=== PATIENT | female | born 1955 | race Caucasian/White ===

== ENCOUNTER 2022-06-17 11:40 | Inpatient (IN) | payer OTHER ==
--- OUTSIDE RECORDS SUMMARY | 2022-06-17 11:56 | XMS REPORT | Continuity of Care Document ---
:1955 Author Organization [facility] t Address [address] [place] [address] Care Team Providers Name Role Phone Fred uMrray MD Primary Care Physician [phone] Doctor Unassigned, [place] Attending Clinician Unavailable ABILIO MARCOS Attending Clinician Unavailable Abilio Marcos MD Attending Clinician Lab, Richi Wong Attending Clinician Unavailable Fred Murray MD Attending Clinician FRED MURRAY Attending Clinician Unavailable NurseRichi Attending Clinician Unavailable SUE JIMENES Attending Clinician Unavailable Sue Jimenes PA-C Attending Clinician Rodney Ching Attending Clinician Unavailable GORDON PADILLA Attending Clinician Unavailable Brianna Rodriguez MD Attending Clinician BRIANNA RODRIGUEZ Attending Clinician Unavailable 2, [facility] Attending Clinician Unavailable Thiago Grimes DO Attending Clinician Lab, Adc Fam Pob I Attending Clinician Unavailable Nurse, Morenita Morales Attending Clinician Unavailable ABILIO MARCOS Admitting Clinician Unavailable GORDON PADILLA Admitting Clinician Unavailable Payers Payer Name Policy Type Policy Number Effective Date Expiration Date S ource Problems Condition Condition Condition Status Onset Resolution Last Treating Co mments Source Name Details Category Date Date Treatment Clinician Date Dilated Dilated Disease Active [facility] bile duct bile duct 6-15 st 00:00: Hospita 00 l Right Right Disease Active [facility] upper upper 6-15 st quadrant quadrant 00:00: Hospit a abdominal abdominal 00 l pain pain Collagenou Collagenou Disease Active U nivers s colitis s colitis 02-12 ity of 00:00: [place] 00 Medical Branch Hyperchole Hyperchole Disease Active U nivers sterolemia sterolemia 02-16 it y of 00:00: [place] 00 Medical Branch Essential Essential Disease Active Uni vers hypertensi hypertensi 02-16 it y of on on 00:00: [place] 00 Medical Branch Restless Restless Disease Active Unive rs leg leg 02-16 ity of syndrome syndrome 00:00: [place] 00 Medical Branch Allergies, Adverse Reactions, Alerts Allergy Allergy Status Severity Reaction(s) Onset Inactive Treating Comm ents Source Name Type Date Date Clinician Codeine Propensi Active Unknown - Univ ers ty to See comments 02-16 ity of adverse 00:00: [place] reaction 00 Medical s Branch CODEINE DRUG Active Unknown-Cmnt Uni vers INGREDI 02-16 ity of 00:00: [place] 00 Medical Branch Codeine Propensi Active GI Methodi ty to Intolerance 07 st adverse 00:00: Hospita reaction 00 l s to drug Family History Family Member Diagnosis Comments Start Date Stop Date Source Natural father Cirrhosis [facility] Social History Social Habit Start Date Stop Date Quantity Comments Source Gender identity [facility] [place] [facility] Sexual orientation [facility] History of tobacco Smokes tobacco [facility] use daily Hospital Exposure to 2022-03-31 2022-04-10 Not sure University of SARS-CoV-2 (event) 00:00:00 08:39:00 [facility] Alcohol intake 2020-08-21 2020-08-21 Ex-drinker [facility] 00:00:00 00:00:00 (finding) Hospital History of Social 2020-08-21 2020-08-[address] function 00:00:00 00:00:00 Hospital Cigarettes smoked 2020-08-17 2020-08-[address] current (pack per 00:00:00 00:00:00 Hospita l day) - Reported Cigarette 2020-08-172020-08-17 [facility] pack-years 00:00:00 00:00:00 Hospital Tobacco use and 2015-09-12 2015-09-12 Smokeless Universit y of exposure 00:00:00 00:00:00 tobacco non-user [facility] Sex Ass[birth year] [facility] 00:00:00 00:00:00 Hospital Smoking Status Start Date Stop Date Source Smokes tobacco daily 2015-09-12 00:00:00 Univers ity [facility] Medications Ordered Filled Start Stop Current Ordering Indication Dosage Frequency Signature Comments Components Source Medication Medication Date Date Medication? Clinician (SIG) Name Name carvediloL 2022-0 Yes [id number] 25mg Take 1 U nivers 25 mg 3-01 tablet by ity of tablet 00:00: mouth in [place] 00 the Medical morning Branch and 1 tablet in the evening. Take with meals. clopidogreL 2022-0 Yes [id number] 75mg Take 1 Univers 75 mg 3-01 tablet by ity of tablet 00:00: mouth in [place] [address] the Medical morning. Branch hydroCHLORO 2022-0 Yes [id number] 25mg Take 1 Univers thiazide 25 3-01 tablet by ity of mg tablet 00:00: mouth in [place] [facility] 00 the Medical morning. Branch olmesartan 2022-0 Yes [id number] 40mg Take 1 U nivers 40 mg 3-01 tablet by ity of tablet 00:00: mouth in [place] 00 the Medical morning. Branch rOPINIRole 2022-0 Yes [id number] 1mg Take 1 U nivers 1 mg tablet 3-01 tablet by ity of 00:00: mouth 2 [place] [address] (two) Medical times Branch daily as needed (restless legs). simvastatin 2022-0 Yes [id number] 40mg Take 1 Univers 40 mg 3-01 tablet by ity of tablet 00:00: mouth at [place] [address] bedtime. Medical Branch carvediloL 2022-0 Yes [id number] 25mg Take 1 U nivers 25 mg 3-01 tablet by ity of tablet 00:00: mouth in [place] [address] the Medical morning Branch and 1 tablet in the evening. Take with meals. clopidogreL 2022-0 Yes [id number] 75mg Take 1 Univers 75 mg 3-01 tablet by ity of tablet 00:00: mouth in [place] 00 the Medical morning. Branch hydroCHLORO 3-0 Yes [id number] 25mg Take 1 Univers thiazide 25 3-01 tablet by ity of mg tablet 00:00: mouth in [place] [facility] 00 the Medical morning. Branch olmesartan 2022-0 Yes [id number] 40mg Take 1 U nivers 40 mg 3-01 tablet by ity of tablet 00:00: mouth in [place] 00 the Medical morning. Branch rOPINIRole 3-0 Yes [id number] 1mg Take 1 U nivers 1 mg tablet 3-01 tablet by ity of 00:00: mouth 2 [place] 00 (two) Medical times [place] daily as needed (restless legs). simvastatin 2022-0 Yes [id number] 40mg Take 1 Univers 40 mg 3-01 tablet by ity of tablet 00:00: mouth at [place] [address] bedtime. Medical Branch carvediloL 2022-0 Yes [id number] 25mg Take 1 U nivers 25 mg 3-01 tablet by ity of tablet 00:00: mouth in [place] 00 the Medical morning Branch and 1 tablet in the evening. Take with meals. clopidogreL 2022-0 Yes [id number] 75mg Take 1 Univers 75 mg 3-01 tablet by ity of tablet 00:00: mouth in [place] 00 the Medical morning. Branch hydroCHLORO 2022-0 Yes [id number] 25mg Take 1 Univers thiazide 25 3-01 tablet by ity of mg tablet 00:00: mouth in [place] [facility] 00 the Medical morning. Branch olmesartan 2022-0 Yes [id number] 40mg Take 1 U nivers 40 mg 3-01 tablet by ity of tablet 00:00: mouth in [place] 00 the Medical morning. Branch rOPINIRole 3-0 Yes [id number] 1mg Take 1 U nivers 1 mg tablet 3-01 tablet by ity of 00:00: mouth 2 [place] [address] (two) [facility] times [place] daily as needed (restless legs). simvastatin 3-0 Yes [id number] 40mg Take 1 Univers 40 mg 3-01 tablet by ity of tablet 00:00: mouth at [place] [address] bedtime. Medical Branch carvediloL 3-0 Yes [id number] 25mg Take 1 U nivers 25 mg 3-01 tablet by ity of tablet 00:00: mouth in [place] [address] the Medical morning Branch and 1 tablet in the evening. Take with meals. clopidogreL 3-0 Yes [id number] 75mg Take 1 Univers 75 mg 3-01 tablet by ity of tablet 00:00: mouth in [place] 00 the Medical morning. Branch hydroCHLORO 3-0 Yes [id number] 25mg Take 1 Univers thiazide 25 3-01 tablet by ity of mg tablet 00:00: mouth in [place] [facility] 00 the Medical morning. Branch olmesartan 2023-0 Yes [id number] 40mg Take 1 U nivers 40 mg 3-01 tablet by ity of tablet 00:00: mouth in [place] 00 the Medical morning. Branch rOPINIRole 2023-0 Yes [id number] 1mg Take 1 U nivers 1 mg tablet 3-01 tablet by ity of 00:00: mouth 2 [place] 00 (two) Medical times [place] daily as needed (restless legs). simvastatin 3-0 Yes [id number] 40mg Take 1 Univers 40 mg 3-01 tablet by ity of tablet 00:00: mouth at [place] [address] bedtime. Medical Branch carvediloL 3-0 Yes [id number] 25mg Take 1 U nivers 25 mg 3-01 tablet by ity of tablet 00:00: mouth in [place] 00 the Medical morning Branch and 1 tablet in the evening. Take with meals. clopidogreL 3-0 Yes [id number] 75mg Take 1 Univers 75 mg 3-01 tablet by ity of tablet 00:00: mouth in [place] 00 the Medical morning. Branch hydroCHLORO 3-0 Yes [id number] 25mg Take 1 Univers thiazide 25 3-01 tablet by ity of mg tablet 00:00: mouth in [place] [facility] 00 the Medical morning. Branch olmesartan 2023-0 Yes [id number] 40mg Take 1 U nivers 40 mg 3-01 tablet by ity of tablet 00:00: mouth in [place] 00 the Medical morning. Branch rOPINIRole 2023-0 Yes [id number] 1mg Take 1 U nivers 1 mg tablet 3-01 tablet by ity of 00:00: mouth 2 [place] [address] (two) Medical times [place] daily as needed (restless legs). simvastatin 2023-0 Yes [id number] 40mg Take 1 Univers 40 mg 3-01 tablet by ity of tablet 00:00: mouth at [place] [address] bedtime. Medical Branch carvediloL 2023-0 Yes [id number] 25mg Take 1 U nivers 25 mg 3-01 tablet by ity of tablet 00:00: mouth in [place] 00 the Medical morning Branch and 1 tablet in the evening. Take with meals. clopidogreL 2022-0 Yes [id number] 75mg Take 1 Univers 75 mg 3-01 tablet by ity of tablet 00:00: mouth in [place] 00 the Medical morning. Branch hydroCHLORO 2022-0 Yes [id number] 25mg Take 1 Univers thiazide 25 3-01 tablet by ity of mg tablet 00:00: mouth in [place] [facility] the Medical morning. Branch olmesartan 2022-0 Yes [id number] 40mg Take 1 U nivers 40 mg 3-01 tablet by ity of tablet 00:00: mouth in [place] the Medical morning. Branch rOPINIRole 2022-0 Yes [id number] 1mg Take 1 U nivers 1 mg tablet 3-01 tablet by ity of 00:00: mouth [place] (two) Medical times Branch daily as needed (restless legs). simvastatin 2022-0 Yes [id number] 40mg Take 1 Univers 40 mg 3-01 tablet by ity of tablet 00:00: mouth at [place] 00 bedtime. Medical Branch rOPINIRole 2022-0 Yes [id number] 1mg TAKE 1 U nivers 1 mg tablet 2-28 TABLET BY ity of 00:00: MOUTH [place] (TWO) Medical TIMES [place] DAILY NEEDED (RESTLESS LEGS). clopidogreL 2022-0 Yes [id number] TAKE 1 Univers 75 mg 2-28 TABLET BY ity of tablet 00:00: MOUTH [place] 00 EVERY DAY Medical Branch simvastatin 2022-0 Yes [id number] TAKE 1 Univers 40 mg 2-28 TABLET BY ity of tablet 00:00: MOUTH [place] 00 EVERYDAY Medical AT BEDTIME Branch olmesartan 2022-0 Yes [id number] TAKE 1 U nivers 40 mg 2-28 TABLET BY ity of tablet 00:00: MOUTH [place] 00 EVERY DAY Medical Branch carvediloL 3-0 Yes [id number] TAKE 1 U nivers 25 mg 2-28 TABLET BY ity of tablet 00:00: MOUTH [place] 00 TWICE A Medical DAY WITH Branch MEALS rOPINIRole 3-0 3- No [id number] 1mg TAKE 1 Univers 1 mg tablet 2-28 03- TABLET BY it y of 00:00: 00:00 MOUTH 2 [place] 00 :00 (TWO) Medical TIMES Branch DAILY NEEDED (RESTLESS LEGS). clopidogreL 0 2022- No [id number] TAKE 1 Univers 75 mg 2-28 - TABLET BY ity of tablet 00:00: 00:00 MOUTH [place] 00 :00 EVERY DAY Medical Branch simvastatin 2022-0 2022- No [id number] TAKE 1 Univers 40 mg 2-28 - TABLET BY ity of tablet 00:00: 00:00 MOUTH [place] 00 :00 EVERYDAY Medical AT BEDTIME Branch olmesartan 2022-0 2022- No [id number] TAKE 1 Univers 40 mg 2-28 - TABLET BY ity of tablet 00:00: 00:00 MOUTH [place] 00 :00 EVERY DAY Medical Branch carvediloL 2022-0 2022- No [id number] TAKE 1 Univers 25 mg 2-07 05- TABLET BY ity of tablet 00:00: 00:00 MOUTH [place] 00 :00 TWICE A Medical DAY WITH Branch MEALS rOPINIRole 2022-0 2022- No [id number] 1mg TAKE 1 Univers 1 mg tablet 04-09 TABLET BY it y of 00:00: 00:00 MOUTH 2 [place] 00 :00 (TWO) Medical TIMES Branch DAILY NEEDED (RESTLESS LEGS). clopidogreL 2022-2022- No [id number] TAKE 1 Univers 75 mg 2-07 05- TABLET BY ity of tablet 00:00: 00:00 MOUTH [place] 00 :00 EVERY DAY Medical Branch simvastatin 2022-0 2022- No [id number] TAKE 1 Univers 40 mg 2-07 05- TABLET BY ity of tablet 00:00: 00:00 MOUTH [place] 00 :00 EVERYDAY Medical AT BEDTIME Branch olmesartan 2022-0 2022- No [id number] TAKE 1 Univers 40 mg 2-28 - TABLET BY ity of tablet 00:00: 00:00 MOUTH [place] 00 :00 EVERY DAY Medical Branch carvediloL 2022-0 2022- No [id number] TAKE 1 Univers 25 mg 2-28 - TABLET BY ity of tablet 00:00: 00:00 MOUTH [place] 00 :00 TWICE A Medical DAY WITH Branch MEALS hydroCHLORO 2022-0 Yes [id number] TAKE 1 Univers thiazide 25 2-06 TABLET BY ity of mg tablet 00:00: MOUTH [place] 00 EVERY DAY Medical Branch hydroCHLORO 2022-0 Yes [id number] TAKE 1 Univers thiazide 25 2-06 TABLET BY ity of mg tablet 00:00: MOUTH [place] 00 EVERY DAY Medical Branch hydroCHLORO 2022-0 3- No [id number] TAKE 1 Univers thiazide 25 2-06 -01 TABLET BY it y of mg tablet 00:00: 00:00 MOUTH [place] 00 :00 EVERY DAY Medical Branch hydroCHLORO 3-0 3- No [id number] TAKE 1 Univers thiazide 25 2-07 13-01 TABLET BY it y of mg tablet 00:00: 00:00 MOUTH [place] 00 :00 EVERY DAY Medical Branch clopidogreL 2021-0 Yes [id number] 75mg Take 1 Univers 75 mg 1-05 tablet by ity of tablet 00:00: mouth [place] 00 daily. Medical Branch carvediloL 0 Yes [id number] 25mg Take 1 U nivers 25 mg 1-05 tablet by ity of tablet 00:00: mouth 2 00 (two) Medical times Branch daily with meals. simvastatin 0 Yes [id number] 40mg Take 1 Univers 40 mg 1-05 tablet by ity of tablet 00:00: mouth at [place] 00 bedtime. Medical Branch rOPINIRole 0 Yes [id number] 1mg Take 1 U nivers 1 mg tablet 1-05 tablet by ity of 00:00: mouth 2 (two) Medical times Branch daily as needed (restless legs). olmesartan 0 Yes [id number] 40mg Take 1 U nivers 40 mg 1-05 tablet by ity of tablet 00:00: mouth [place] 00 daily. Medical Branch hydroCHLORO 2021-0 Yes [id number] 25mg Take 1 Univers thiazide 25 1-05 tablet by ity of mg tablet 00:00: mouth [place] 00 daily. Medical Branch clopidogreL 2021-0 Yes [id number] 75mg Take 1 Univers 75 mg 1-05 tablet by ity of tablet 00:00: mouth [place] 00 daily. Medical Branch carvediloL 2021-0 Yes [id number] 25mg Take 1 U nivers 25 mg 1-05 tablet by ity of tablet 00:00: mouth 2 00 (two) Medical times Branch daily with meals. simvastatin 2021-0 Yes [id number] 40mg Take 1 Univers 40 mg 1-05 tablet by ity of tablet 00:00: mouth at [place] 00 bedtime. Medical Branch rOPINIRole 2021-0 Yes [id number] 1mg Take 1 U nivers 1 mg tablet 1-05 tablet by ity of 00:00: mouth 2 (two) Medical times Branch daily as needed (restless legs). olmesartan 2021-0 Yes [id number] 40mg Take 1 U nivers 40 mg 1-05 tablet by ity of tablet 00:00: mouth [place] 00 daily. Medical Branch hydroCHLORO 2021-0 Yes [id number] 25mg Take 1 Univers thiazide 25 1-05 tablet by ity of mg tablet 00:00: mouth [place] 00 daily. Medical Branch clopidogreL 2021-0 Yes [id number] 75mg Take 1 Univers 75 mg 1-05 tablet by ity of tablet 00:00: mouth [place] 00 daily. Medical Branch carvediloL 2021-0 Yes [id number] 25mg Take 1 U nivers 25 mg 1-05 tablet by ity of tablet 00:00: mouth 2 (two) Medical times Branch daily with meals. simvastatin 2021-0 Yes [id number] 40mg Take 1 Univers 40 mg 1-05 tablet by ity of tablet 00:00: mouth at 00 bedtime. Medical Branch rOPINIRole 2021-0 Yes [id number] 1mg Take 1 U nivers 1 mg tablet 1-05 tablet by ity of 00:00: mouth (two) Medical times Branch daily as needed (restless legs). olmesartan 2021-0 Yes [id number] 40mg Take 1 U nivers 40 mg 1-05 tablet by ity of tablet 00:00: mouth [place] 00 daily. Medical Branch hydroCHLORO 2021-0 Yes [id number] 25mg Take 1 Univers thiazide 25 1-05 tablet by ity of mg tablet 00:00: mouth [place] 00 daily. Medical Branch clopidogreL 2021-0 Yes [id number] 75mg Take 1 Univers 75 mg 1-05 tablet by ity of tablet 00:00: mouth [place] 00 daily. Medical Branch carvediloL 2021-0 Yes [id number] 25mg Take 1 U nivers 25 mg 1-05 tablet by ity of tablet 00:00: mouth 2 00 (two) Medical times Branch daily with meals. simvastatin 2021-0 Yes [id number] 40mg Take 1 Univers 40 mg 1-05 tablet by ity of tablet 00:00: mouth at [place] 00 bedtime. Medical Branch rOPINIRole 2021-0 Yes [id number] 1mg Take 1 U nivers 1 mg tablet 1-05 tablet by ity of 00:00: mouth 2 (two) Medical times Branch daily as needed (restless legs). olmesartan 2021-0 Yes [id number] 40mg Take 1 U nivers 40 mg 1-05 tablet by ity of tablet 00:00: mouth [place] 00 daily. Medical Branch hydroCHLORO 2021-0 Yes [id number] 25mg Take 1 Univers thiazide 25 1-05 tablet by ity of mg tablet 00:00: mouth [place] 00 daily. Medical Branch clopidogreL 2021-0 Yes [id number] 75mg Take 1 Univers 75 mg 1-05 tablet by ity of tablet 00:00: mouth [place] 00 daily. Medical Branch carvediloL 2021-0 Yes [id number] 25mg Take 1 U nivers 25 mg 1-05 tablet by ity of tablet 00:00: mouth 2 (two) Medical times Branch daily with meals. simvastatin 2021-0 Yes [id number] 40mg Take 1 Univers 40 mg 1-05 tablet by ity of tablet 00:00: mouth at [place] 00 bedtime. Medical Branch rOPINIRole 2021-0 Yes [id number] 1mg Take 1 U nivers 1 mg tablet 1-05 tablet by ity of 00:00: mouth (two) Medical times Branch daily as needed (restless legs). olmesartan 2021-0 Yes [id number] 40mg Take 1 U nivers 40 mg 1-05 tablet by ity of tablet 00:00: mouth [place] 00 daily. Medical Branch hydroCHLORO 2021-0 Yes [id number] 25mg Take 1 Univers thiazide 25 1-05 tablet by ity of mg tablet 00:00: mouth [place] 00 daily. Medical Branch clopidogreL 2021-0 Yes [id number] 75mg Take 1 Univers 75 mg 1-05 tablet by ity of tablet 00:00: mouth [place] 00 daily. Medical Branch carvediloL 2021-0 Yes [id number] 25mg Take 1 U nivers 25 mg 1-05 tablet by ity of tablet 00:00: mouth 2 00 (two) Medical times Branch daily with meals. simvastatin 2021-0 Yes [id number] 40mg Take 1 Univers 40 mg 1-05 tablet by ity of tablet 00:00: mouth at [place] 00 bedtime. Medical Branch rOPINIRole 2-0 Yes [id number] 1mg Take 1 U nivers 1 mg tablet 1-05 tablet by ity of 00:00: mouth 2 (two) Medical times Branch daily as needed (restless legs). olmesartan 2021-0 Yes [id number] 40mg Take 1 U nivers 40 mg 1-05 tablet by ity of tablet 00:00: mouth [place] 00 daily. Medical Branch hydroCHLORO 2021-0 Yes [id number] 25mg Take 1 Univers thiazide 25 1-05 tablet by ity of mg tablet 00:00: mouth [place] 00 daily. Medical Branch clopidogreL 2021-0 Yes [id number] 75mg Take 1 Univers 75 mg 1-05 tablet by ity of tablet 00:00: mouth [place] 00 daily. Medical Branch carvediloL 2021-0 Yes [id number] 25mg Take 1 U nivers 25 mg 1-05 tablet by ity of tablet 00:00: mouth 2 (two) Medical times Branch daily with meals. simvastatin 2021-0 Yes [id number] 40mg Take 1 Univers 40 mg 1-05 tablet by ity of tablet 00:00: mouth at [place] 00 bedtime. Medical Branch rOPINIRole 2021-0 Yes [id number] 1mg Take 1 U nivers 1 mg tablet 1-05 tablet by ity of 00:00: mouth (two) Medical times Branch daily as needed (restless legs). olmesartan 2021-0 Yes [id number] 40mg Take 1 U nivers 40 mg 1-05 tablet by ity of tablet 00:00: mouth [place] 00 daily. Medical Branch hydroCHLORO 2021-0 Yes [id number] 25mg Take 1 Univers thiazide 25 1-05 tablet by ity of mg tablet 00:00: mouth [place] 00 daily. Medical Branch clopidogreL 2-0 Yes [id number] 75mg Take 1 Univers 75 mg 1-05 tablet by ity of tablet 00:00: mouth [place] 00 daily. Medical Branch carvediloL 2021-0 Yes [id number] 25mg Take 1 U nivers 25 mg 1-05 tablet by ity of tablet 00:00: mouth 2 00 (two) Medical times Branch daily with meals. simvastatin 2-0 Yes [id number] 40mg Take 1 Univers 40 mg 1-05 tablet by ity of tablet 00:00: mouth at [place] 00 bedtime. Medical Branch rOPINIRole 2021-0 Yes [id number] 1mg Take 1 U nivers 1 mg tablet 1-05 tablet by ity of 00:00: mouth 2 (two) Medical times Branch daily as needed (restless legs). olmesartan 2021-0 Yes [id number] 40mg Take 1 U nivers 40 mg 1-05 tablet by ity of tablet 00:00: mouth [place] 00 daily. Medical Branch hydroCHLORO 2021-0 Yes [id number] 25mg Take 1 Univers thiazide 25 1-05 tablet by ity of mg tablet 00:00: mouth [place] 00 daily. Medical Branch clopidogreL 2021-0 Yes [id number] 75mg Take 1 Univers 75 mg 1-05 tablet by ity of tablet 00:00: mouth [place] 00 daily. Medical Branch carvediloL 2021-0 Yes [id number] 25mg Take 1 U nivers 25 mg 1-05 tablet by ity of tablet 00:00: mouth (two) Medical times Branch daily with meals. simvastatin 2021-0 Yes [id number] 40mg Take 1 Univers 40 mg 1-05 tablet by ity of tablet 00:00: mouth at [place] 00 bedtime. Medical Branch rOPINIRole 2021-0 Yes [id number] 1mg Take 1 U nivers 1 mg tablet 1-05 tablet by ity of 00:00: mouth (two) Medical times Branch daily as needed (restless legs). olmesartan 2021-0 Yes [id number] 40mg Take 1 U nivers 40 mg 1-05 tablet by ity of tablet 00:00: mouth [place] 00 daily. Medical Branch hydroCHLORO 2021-0 Yes [id number] 25mg Take 1 Univers thiazide 25 1-05 tablet by ity of mg tablet 00:00: mouth [place] 00 daily. Medical Branch clopidogreL 2021-0 Yes [id number] 75mg Take 1 Univers 75 mg 1-05 tablet by ity of tablet 00:00: mouth [place] 00 daily. Medical Branch carvediloL 2021-0 Yes [id number] 25mg Take 1 U nivers 25 mg 1-05 tablet by ity of tablet 00:00: mouth 2 (two) Medical times Branch daily with meals. simvastatin 2022-0 Yes [id number] 40mg Take 1 Univers 40 mg 1-05 tablet by ity of tablet 00:00: mouth at [place] 00 bedtime. Medical Branch rOPINIRole 2021-0 Yes [id number] 1mg Take 1 U nivers 1 mg tablet 1-05 tablet by ity of 00:00: mouth 2 00 (two) Medical times Branch daily as needed (restless legs). olmesartan 0 Yes [id number] 40mg Take 1 U nivers 40 mg 1-05 tablet by ity of tablet 00:00: mouth [place] 00 daily. Medical Branch hydroCHLORO 0 Yes [id number] 25mg Take 1 Univers thiazide 25 1-05 tablet by ity of mg tablet 00:00: mouth 00 daily. Medical Branch clopidogreL 0 Yes [id number] 75mg Take 1 Univers 75 mg 1-05 tablet by ity of tablet 00:00: mouth 00 daily. Medical Branch carvediloL 0 Yes [id number] 25mg Take 1 U nivers 25 mg 1-05 tablet by ity of tablet 00:00: mouth [place] (two) Medical times Branch daily with meals. simvastatin Yes [id number] 40mg Take 1 Univers 40 mg 1-05 tablet by ity of tablet 00:00: mouth at [place] 00 bedtime. Medical Branch rOPINIRole 0 Yes [id number] 1mg Take 1 U nivers 1 mg tablet 1-05 tablet by ity of 00:00: mouth [place] 00 (two) Medical times Branch daily as needed (restless legs). olmesartan 0 Yes [id number] 40mg Take 1 U nivers 40 mg 1-05 tablet by ity of tablet 00:00: mouth [place] 00 daily. Medical Branch simvastatin 2021-0 2022- No [id number] 40mg Take 1 Univers 40 mg 1-05 02-28 tablet by ity of tablet 00:00: 00:00 mouth at [place] 00 :00 bedtime. Medical Branch rOPINIRole 2021-0 2022- No [id number] 1mg Take 1 Univers 1 mg tablet 1-05 02-28 tablet by it y of 00:00: 00:00 mouth 2 00 :00 (two) Medical times Branch daily as needed (restless legs). olmesartan 2021-0 2022- No [id number] 40mg Take 1 Univers 40 mg 02-14 tablet by ity of tablet 00:00: 00:00 mouth [place] 00 :00 daily. Medical Branch clopidogreL 2021-0 2022- No [id number] 75mg Take 1 [facility] 75 mg 02-14 tablet by ity of tablet 00:00: 00:00 mouth [place] 00 :00 daily. Medical Branch carvediloL 2021-0 2022- No [id number] 25mg Take 1 Univers 25 mg 02-14 tablet by ity of tablet 00:00: 00:00 mouth 2 [place] 00 :00 (two) Medical times Branch daily with meals. hydroCHLORO 2022- No [id number] 25mg Take 1 [facility] thiazide 25 02-14 tablet by it y of mg tablet 00:00: 00:00 mouth [place] 00 :00 daily. Medical Branch omeprazole 2020-0 Yes [facility] (PriLOSEC) 7-08 st 20 MG 14:13: Hospita capsule 51 l melatonin 2020-0 Yes Take by Metho di 10 mg 7-[address] capsule 14:13: Hospita 51 l diphenoxyla 2020-0 Yes [facility] i te 1-13 st HCl/atropin 00:00: Hospit a e 00 l (DIPHENOXYL ATE-ATROPIN E ORAL) clopidogreL 2020-0 Yes 75mg Take 75 mg [facility] (PLAVIX) 75 -[address] mg tablet 00:00: Hospita 00 l carvediloL 2020-0 Yes 25mg Take 25 mg M ethodi (COREG) 25 -[address] MG tablet 00:00: Hospita 00 l hydroCHLORO 2020-0 Yes 12.5mg Take 12.5 [facility] thiazide 1-[address] (HYDRODIURI 00:00: mouth. Hosp meenakshi L) 25 MG 00 l tablet olmesartan 2020-0 Yes 40mg Take 40 mg M ethodi (BENICAR) 1-[address] 40 MG 00:00: Hospita tablet 00 l rOPINIRole 2020-0 Yes 1mg Take 1 mg Me thodi (REQUIP) 1 1-[address] MG tablet 00:00: Hospita 00 l simvastatin 2020-0 Yes 40mg Take 40 mg [facility] (ZOCOR) 40 1-[address] mg tablet 00:00: Hospita 00 l Immunizations Ordered Filled Immunization Date Status Comments [facility] Immunization Name Name Influenza Virus 2021-12-14 Completed [facility] Vaccine,quad 00:00:00 [place] [facility],preserve [place] 65+ Influenza Virus 2021-12-14 Completed Universit y [facility] Vaccine,quad 00:00:[facility] [place] [facility] [place] 65+ Influenza Virus 2021-12-14 Completed Universit y of Vaccine,quad 00:00:00 [place] [facility] [place] 65+ Influenza Virus 2021-12-14 Completed Universit y of Vaccine,quad 00:00:00 [place] [facility] [place] 65+ Influenza Virus 2021-12-14 Completed Universit y of Vaccine,quad 00:00:00 [place] [facility] [place] 65+ Influenza Virus 2021-12-14 Completed Universit y of Vaccine,quad 00:00:00 [place] [facility] [place] 65+ Influenza Virus 2021-12-14 Completed Universit y of Vaccine,quad 00:00:00 [place] [facility] [place] 65+ Influenza Virus 2021-12-14 Completed Universit y of Vaccine,quad 00:00:00 [place] [facility] [place] 65+ Influenza Virus 2021-12-14 Completed Universit y of Vaccine,quad 00:00:00 [place] [facility] [place] 65+ Influenza Virus 2021-02-14 Completed Universit y of Vaccine,quad 00:00:00 [place] [facility] [place] 65+ Influenza Virus 2021-02-14 Completed Universit y of Vaccine,quad 00:00:00 [place] [facility] [place] 65+ Influenza Virus 2021-02-14 Completed Universit y of Vaccine,quad 00:00:00 [place] [facility] [place] 65+ Influenza Virus 2021-02-14 Completed Universit y of Vaccine,quad 00:00:00 [place] [facility] [place] 65+ Influenza Virus 2021-02-14 Completed [facility]it y of Vaccine,quad 00:00:00 [place] [facility] [place] 65+ Influenza Virus 2021-02-14 Completed [facility]it y of Vaccine,quad 00:00:00 [place] [facility] [place] 65+ Influenza Virus 2021-02-14 Completed [facility]it y of Vaccine,quad 00:00:00 [place] [facility] [place] 65+ Influenza Virus 2021-02-14 Completed [facility]it y of Vaccine,quad 00:00:00 [place] [facility] [place] 65+ Influenza Virus 2021-02-14 Completed [facility]it y of Vaccine,quad 00:00:00 [place] [facility] [place] 65+ Influenza Virus 2021-02-14 Completed [facility]it [facility] of Vaccine,quad 00:00:00 [place] [facility] [place] 65+ Influenza Virus 2021-02-14 Completed [facility]it y of Vaccine,quad 00:00:00 [place] [facility] [place] 65+ Influenza Virus 2021-02-14 Completed [facility]it y of Vaccine,quad 00:00:00 [place] [facility] [place] 65+ Influenza Virus 2021-02-14 Completed [facility]it y of Vaccine,quad 00:00:00 [place] [facility] [place] 65+ Influenza Virus 2021-02-14 Completed [facility]it y of Vaccine,quad 00:00:00 [place] [facility] [place] 65+ Influenza Virus 2021-02-14 Completed [facility]it y of Vaccine,quad 00:00:00 [place] [facility] [place] 65+ Influenza Virus 2021-02-14 Completed [facility]it [facility] of Vaccine,quad 00:00:00 [place] [facility] [place] 65+ Influenza Virus 2021-02-14 Completed [facility]it y of Vaccine,quad 00:00:00 [place] [facility] [place] 65+ Influenza Virus 2021-02-14 Completed [facility]it y of Vaccine,quad 00:00:00 [place] [facility] [place] 65+ Influenza High Dose 2020-02-14 Completed Unive rsity of Quad 00:00:00 [place] [facility] Influenza High Dose 2020-02-14 Completed Unive rsity of Quad 00:00:00 [place] [facility] Influenza High Dose 2020-02-14 Completed Unive rsity of Quad 00:00:00 [place] [facility] Influenza High Dose 2020-02-14 Completed Unive rsity of Quad 00:00:00 [place] [facility] Influenza High Dose 2020-02-14 Completed Unive rsity of Quad 00:00:00 [facility] Influenza High Dose 2020-02-14 Completed Unive rsity of Quad 00:00:00 [facility] Influenza High Dose 2020-02-14 Completed Unive rsity of Quad 00:00:00 [facility] Influenza High Dose 2020-02-14 Completed Unive rsity of Quad 00:00:00 [facility] Influenza High Dose 2020-02-14 Completed Unive rsity of Quad 00:00:00 [facility] Influenza High Dose 2020-02-14 Completed Unive rsity of Quad 00:00:00 [facility] Influenza High Dose 2020-02-14 Completed Unive rsity of Quad 00:00:00 [facility] Influenza High Dose 2020-02-14 Completed Unive rsity of Quad 00:00:00 [facility] Influenza High Dose 2020-02-14 Completed Unive rsity of Quad 00:00:00 [facility] Influenza High Dose 2020-02-14 Completed Unive rsity of Quad 00:00:00 [facility] Influenza High Dose 2020-02-14 Completed Unive rsity of Quad 00:00:00 [facility] Influenza High Dose 2020-02-14 Completed Unive rsity of Quad 00:00:00 [facility] Influenza High Dose 2020-02-14 Completed Unive rsity of Quad 00:00:00 [facility] Influenza High Dose 2020-02-14 Completed Unive rsity of Quad 00:00:00 [facility] Pneumococcal 2019-08-09 Completed University o f Polysaccharide, 00:00:00 [place] [facility] PPSV23 (PNEUMOVAX) Branch Pneumococcal 2019-08-09 Completed University o f Polysaccharide, 00:00:00 [place] [facility] PPSV23 (PNEUMOVAX) Branch Pneumococcal 2019-08-09 Completed University o f Polysaccharide, 00:00:00 [place] [facility] PPSV23 (PNEUMOVAX) Branch Pneumococcal 2019-08-09 Completed University o f Polysaccharide, 00:00:00 [place] [facility] PPSV23 (PNEUMOVAX) Branch Pneumococcal 2019-08-09 Completed University o f Polysaccharide, 00:00:00 [place] [facility] PPSV23 (PNEUMOVAX) Branch Pneumococcal 2019-08-09 Completed University o f Polysaccharide, 00:00:00 [place] [facility] PPSV23 (PNEUMOVAX) Branch Pneumococcal 2019-08-09 Completed University o f Polysaccharide, 00:00:00 [place] [facility] PPSV23 (PNEUMOVAX) Branch Pneumococcal 2019-08-09 Completed University o f Polysaccharide, 00:00:00 [place] [facility] PPSV23 (PNEUMOVAX) Branch Pneumococcal 2019-08-09 Completed University o f Polysaccharide, 00:00:00 [place] [facility] PPSV23 (PNEUMOVAX) Branch Pneumococcal 2019-08-09 Completed University o f Polysaccharide, 00:00:00 [place] [facility] PPSV23 (PNEUMOVAX) Branch Pneumococcal 2019-08-09 Completed University o f Polysaccharide, 00:00:00 [place] [facility] PPSV23 (PNEUMOVAX) Branch Pneumococcal 2019-08-09 Completed University o f Polysaccharide, 00:00:00 [place] [facility] PPSV23 (PNEUMOVAX) Branch Pneumococcal 2019-08-09 Completed University o f Polysaccharide, 00:00:00 [place] [facility] PPSV23 (PNEUMOVAX) Branch Pneumococcal 2019-08-09 Completed University o f Polysaccharide, 00:00:00 [place] [facility] PPSV23 (PNEUMOVAX) Branch Pneumococcal 2019-08-09 Completed University o f Polysaccharide, 00:00:00 [place] [facility] PPSV23 (PNEUMOVAX) Branch Pneumococcal 2019-08-09 Completed University o f Polysaccharide, 00:00:00 [place] [facility] PPSV23 (PNEUMOVAX) Branch Pneumococcal 2019-08-09 Completed University o f Polysaccharide, 00:00:00 [place] [facility] PPSV23 (PNEUMOVAX) Branch Pneumococcal 2019-08-09 Completed University o f Polysaccharide, 00:00:00 [place] [facility] PPSV23 (PNEUMOVAX) Branch Influenza Virus 2018-10-11 Completed Universit y of Vaccine 00:00:00 [facility] Influenza Virus 2018-10-11 Completed Universit y of Vaccine 00:00:00 [facility] Influenza Virus 2018-10-11 Completed Universit y of Vaccine 00:00:00 [facility] Influenza Virus 2018-10-11 Completed Universit y of Vaccine 00:00:00 [facility] Influenza Virus 2018-10-11 Completed Universit y of Vaccine 00:00:00 [facility] Influenza Virus 2018-10-11 Completed Universit y of Vaccine 00:00:00 [facility] Influenza Virus 2018-10-11 Completed Universit y of Vaccine 00:00:00 [facility] Influenza Virus 2018-10-11 Completed Universit y of Vaccine 00:00:00 [facility] Influenza Virus 2018-10-11 Completed Universit y of Vaccine 00:00:00 [facility] Influenza Virus 2018-10-11 Completed Universit y of Vaccine 00:00:00 [facility] Influenza Virus 2018-10-11 Completed Universit y of Vaccine 00:00:00 [facility] Influenza Virus 2018-10-11 Completed Universit y of Vaccine 00:00:00 [facility] Influenza Virus 2018-10-11 Completed Universit y of Vaccine 00:00:00 [facility] Influenza Virus 2018-10-11 Completed Universit y of Vaccine 00:00:00 [facility] Influenza Virus 2018-10-11 Completed Universit y of Vaccine 00:00:00 [facility] Influenza Virus 2018-10-11 Completed Universit y of Vaccine 00:00:00 [facility] Influenza Virus 2018-10-11 Completed Universit y of Vaccine 00:00:00 [facility] Influenza Virus 2018-10-11 Completed Universit y of Vaccine 00:00:00 [facility] Pneumococcal 13 2018-08-04 Completed Universit y of Conjugate, PCV13 00:00:00 [facility] dical (Prevnar 13) Branch Pneumococcal 13 2018-08-04 Completed Universit y of Conjugate, PCV13 00:00:00 [facility] dical (Prevnar 13) Branch Pneumococcal 13 2018-08-04 Completed Universit y of Conjugate, PCV13 00:00:00 [facility] dical (Prevnar 13) Branch Pneumococcal 13 2018-08-04 Completed Universit y of Conjugate, PCV13 00:00:00 [facility] dical (Prevnar 13) Branch Pneumococcal 13 2018-08-04 Completed Universit y of Conjugate, PCV13 00:00:00 [place] [facility] (Prevnar 13) Branch Pneumococcal 13 2018-08-04 Completed Universit y of Conjugate, PCV13 00:00:00 [place] [facility] (Prevnar 13) Branch Pneumococcal 13 2018-08-04 Completed Universit y of Conjugate, PCV13 00:00:00 [facility] dical (Prevnar 13) Branch Pneumococcal 13 2018-08-04 Completed Universit y of Conjugate, PCV13 00:00:00 [facility] dical (Prevnar 13) Branch Pneumococcal 13 2018-08-04 Completed Universit y of Conjugate, PCV13 00:00:00 [place] [facility] (Prevnar 13) Branch Pneumococcal 13 2018-08-04 Completed Universit y of Conjugate, PCV13 00:00:00 [place] [facility] (Prevnar 13) Branch Pneumococcal 13 2018-08-04 Completed Universit y of Conjugate, PCV13 00:00:00 [place] [facility] (Prevnar 13) Branch Pneumococcal 13 2018-08-04 Completed Universit y of Conjugate, PCV13 00:00:00 [place] [facility] (Prevnar 13) Branch Pneumococcal 13 2018-08-04 Completed Universit y of Conjugate, PCV13 00:00:00 [place] [facility] (Prevnar 13) Branch Pneumococcal 13 2018-08-04 Completed Universit y of Conjugate, PCV13 00:00:00 [place] [facility] (Prevnar 13) Branch Pneumococcal 13 2018-08-04 Completed Universit y of Conjugate, PCV13 00:00:00 [place] [facility] (Prevnar 13) Branch Pneumococcal 13 2018-08-04 Completed Universit y of Conjugate, PCV13 00:00:00 [place] [facility] (Prevnar 13) Branch Pneumococcal 13 2018-08-04 Completed Universit y of Conjugate, PCV13 00:00:00 [place] [facility] (Prevnar 13) Branch Pneumococcal 13 2018-08-04 Completed Universit y of Conjugate, PCV13 00:00:00 [place] [facility] (Prevnar 13) Branch Vital Signs Vital Name Observation Time Observation Value Comments Source Systolic blood 2022-04-10 14:55:00 185 mm[Hg] Univer sity of pressure [facility] Diastolic blood 2022-04-10 14:55:00 69 mm[Hg] Unive [facility] Heart rate 2022-04-10 14:54:00 66 /min [facility] Body temperature 2022-04-10 14:54:00 36.72 Charis [facility] weight 2022-04-10 14:54:00 65.318 kg [facility] BMI 2022-04-10 14:54:00 26.34 kg/m2 [facility] Oxygen saturation in 2022-04-10 14:54:00 97 /min [facility] Arterial blood by [facility] Pulse oximetry Branch Systolic blood 2021-05-08 18:33:00 123 mm[Hg] Univer sity of pressure [facility] Diastolic blood 2021-05-08 18:33:00 60 mm[Hg] Unive rsity of pressure [facility] Heart rate 2021-05-08 18:32:00 76 /min [facility] Medical [place] Body temperature 2021-05-08 18:32:00 36.78 Charis [facility] Body height 2021-05-08 18:32:00 157.5 cm [facility] Body weight 2021-05-08 18:32:00 65.409 kg [facility] BMI 2021-05-08 18:32:00 26.37 kg/m2 [facility] Procedures Procedure Date / Time Performing Clinician Source Performed REFERRAL- 2022-05-21 05:01:00 Doctor Unassigned, No [facility] [place] REQUEST/RESPONSE Name Medical Branch EXTERNAL PROVIDER 2022-04-29 05:01:00 [facility] Unassigned, No [facility] [place] US ABDOMEN LIMITED 2022-04-15 21:37:27 Abilio Marcos [facility] CONSENT/REFUSAL FOR 2022-04-15 20:43:04 Doctor Unassigned, No [facility]AT[facility] Name Medical Branch ASSIGNMENT OF BENEFITS 2022-04-15 20:42:47 Doctor Unassigned, No [facility] Medical Branch FLU 2021-12-14 13:13:22 Doctor Unassigned, No [facility] sity [facility] VACC([id number]),65+YR,0. Name Medical Branch 5 ML,IM,ADJUVANTED,QUAD([place] UAD) REFERRAL- 2021-10-26 05:01:00 Doctor Unassigned, No [facility] [place] REQUEST/RESPONSE Name Medical Branch EXTERNAL PROVIDER 2021-10-18 05:01:00 Doctor Unassigned, No Univ ersity [facility] RECORDS Name Medical Branch REFERRAL- 2021-10-02 05:01:00 Doctor Unassigned, No Univer sity [facility] REQUEST/RESPONSE Name Medical Branch PATIENT QUESTIONNAIRE 2021-09-20 05:01:00 Doctor Unassigned, No [facility] [place] Name Medical [facility] ASSIGNMENT OF BENEFITS 2021-09-13 20:02:30 [facility]igned, No [facility] DISCLOSURE AND CONSENT, 2021-05-08 05:01:00 Doctor Unassigned, N o [facility] MEDICAL AND SURGICAL [facility] PROCEDURES Plan of Care Planned Activity Planned Date Details Comments Source Future Scheduled 2022-05-13 COVID-19 VACCINE (#1) [facility] Hospital Test 15:57:40 [code = COVID-19 VACCINE (#1)] Future Scheduled 2022-05-13 Hepatitis C screening [facility] Test 15:57:40 (procedure) [code = [id number]] Future Scheduled 2022-05-13 BREAST CANCER [facility] Test 15:57:40 SCREENING [code = BREAST CANCER SCREENING] Future Scheduled 2022-05-13 COLONOSCOPY SCREENING [facility] Test 15:57:40 [code = COLONOSCOPY SCREENING] Future Scheduled 2022-05-13 SHINGLES VACCINES (1 [facility] 15:57:40 of 2) [code = SHINGLES VACCINES (1 of 2)] Future Scheduled 2022-05-13 INFLUENZA VACCINE [facility] Test 15:57:40 [code = INFLUENZA VACCINE] Encounters Start End Encounter Admission Attending Care Care Encounter Source Date/Time Date/Time Type Type Clinicians Facility Department ID 2022-05-21 2022-05-21 Orders Doctor REYNALDO Daigle.[id number] Univers 00:00:00 00:00:00 Only Unassigned, ASHLI [id number] [facility]y [facility] [id number] [place] as [id number] [address] 2022-04-29 2022-04-29 Orders Doctor REYNALDO Daigle.2.840.114 [id number] Univers 00:00:00 00:00:00 Only Unassigned, ASHLI [id number] [place] [facility] [id number] [place] [phone] [address] 2022-04-15 2022-04-15 Outpatient R KELLY [facility] [id number] Univers 14:44:22 23:59:00 ABILIO Dumont f [facility] 2022-04-15 2022-04-15 [facility] [employer] [facility] 1.2.840.114 [id number] Univers 14:44:22 23:59:00 Abilio Mackey [id number] ity of [place] [id number] [facility] [phone] [facility] 8[address] [place] 2022-04-10 2022-04-10 Retort Firer Lab, Richi - Marvin [facility] 1.2.840.1 [id number] [facility] 09:15:00 09:30:[address] [facility] [id number] .10 [facility] [id number] [place] ESTEBAN?BLEA [id number] [facility] OFFICE [facility] 2022-04-10 2022-04-10 [facility] [id number] [facility] 09:15:00 09:15:00 FRED [facility] 2022-04-10 2022-04-10 Office [facility] 1.2.840.114 [id number] Univers 09:00:00 09:15:00 Visit [facility] [id number] it y of [place] [id number] [place] ESTEBAN?BLEA [phone] [address] OFFICE [facility] 2022-04-09 2022-04-09 [facility] 1.2.840.114 [id number] Univers 00:00:00 00:00:00 [facility] [id number] it y of [place] [id number] [place] ESTEBAN?BLEA [id number] [address] OFFICE [facility] 2022-03-18 2022-03-18 [facility] 1.2.840.114 [id number] Univers 00:00:00 00:00:00 [facility] [id number] it y of [place] [id number] [place] ESTEBAN?BLEA [phone] [address] OFFICE [facility] 2021-12-14 2021-12-14 Imm/Inj Nurse, Richi Wong [facility] 1.2.840.114 [id number] Univers 08:00:00 08:20:[address] [facility] 350.1.13 .10 [facility] 4.2.7.2.686 [place] ESTEBAN?BLEA [phone] Dc petros [address] MEDICAL OFFICE BUILDING 2021-12-14 2021-12-14 Outpatient R TREVOR [facility] [id number] Univers 08:00:00 08:00:00 FRED ity [facility] 2021-10-26 2021-10-26 Orders Doctor REYNALDO 1.2.840.114 [id number] Univers 00:00:00 00:00:00 Only Unassigned, ASHLI 350.1.13.10 [facility] [place] [facility] 4.2.7.2.686 [place] [phone] [address] 2021-10-18 2021-10-18 Orders Doctor JACOBS 1.2.840.114 [id number] Univers 00:00:00 00:00:00 Only Unassigned, ASHLI 350.1.13.10 [facility]y [facility] 4.2.7.2.686 [place] [phone] [address] 2021-10-02 2021-10-02 Orders Doctor JACOBS 1.2.840.114 [id number] Univers 00:00:00 00:00:00 Only Unassigned, ASHLI 350.1.13.10 [facility]y [facility] 4.2.7.2.686 [place] [phone] [address] 2021-09-20 2021-09-20 Orders Doctor REYNALDO 1.2.840.114 [id number] Univers 00:00:00 00:00:00 Only Unassigned, ASHLI 350.1.13.10 [facility] 4.2.7.2.686 [place] [phone] [address] 2021-09-13 2021-09-13 Outpatient R KELLY [facility] [id number] Univers 15:06:06 23:59:00 ABILIO Dumont [facility] 2021-09-13 2021-09-13 [facility] Kelly [facility] 1.2.840.114 [id number] Univers 15:06:06 23:59:00 Encounter Abilio dumont 350.1.13.10 [place] [facility] [id number] [facility] [address] [place] 2021-09-13 2021-09-13 Orders Doctor REYNALDO 1.2.840.114 [id number] Univers 00:00:00 00:00:00 Only Unassigned, ASHLI 350.1.13.10 [facility] [place] [facility] 4.2.7.2.686 [place] [id number] [address] 2021-05-08 2021-05-08 Outpatient R JALIL [facility] [id number] Univers 13:30:00 14:02:23 [facility] 2021-05-08 2021-05-08 Office Jalil [facility] [id number] [id number] Univers 13:30:00 14:02:23 Visit Sue HIGGINS 350.1.13.10 [place]2.[place] [phone] Dc dical [facility] 134 [facility] 2021-05-08 2021-05-08 Orders Doctor REYNALDO 1.2.840.114 [id number] Univers 00:00:00 00:00:00 Only Unassigned, ASHLI 350.1.13.10 [facility] [facility] 4.2.7.2.686 [place] [phone] [address] 2021-04-25 2021-04-25 Orders Doctor REYNALDO 1.2.840.114 [id number] Univers 00:00:00 00:00:00 Only Unassigned, ASHLI 350.1.13.10 [facility]y [facility] 4.2.7.2.686 [place] [id number] [address] 2021-02-14 2021-02-14 Retort Firer Lab, Ang - Db [facility] 1.2.840.1 [id number] Univers 09:00:00 09:15:00 Visit Fred Murray [facility] 350.1.13 .10 [facility] 4.2.7.2.686 [place] ESTEBAN?BLEA [phone] Dc petros [facility] [address] [place] MEDICAL OFFICE [facility] 2021-02-14 2021-02-14 [facility] [id number] Univers 08:30:00 08:48:13 FRED [facility] 2021-02-14 2021-02-14 Office [facility] 1.2.840.114 [id number] Univers 08:30:00 08:48:13 Visit [facility] 350.1.13.10 it y of [place] [facility] 4.2.7.2.686 [place] ESTEBAN?BLEA [id number] [facility] [address] [place] MEDICAL OFFICE [facility] 2021-01-24 2021-01-24 REYNALDO Nayak 1.2.840.114 [id number] Univers 00:00:00 00:00:00 Management Rodney CORNELIUS 350.1.13.10 ity of [facility] [id number] [place] [phone] [facility] [address] [place] 2020-11-28 2020-11-28 Office [facility] 1.2.840.114 [id number] Univers 13:08:57 13:30:31 Visit [facility] 350.1.13.10 it y of [place] 4.2.7.2.686 [place] Esteban?Blea [phone] [facility] [address] [place] Medical Office [facility] 2020-11-28 2020-11-28 Outpatient Ger[facility] [id number] Univers 13:15:00 13:15:00 FRED [facility] 2020-11-22 2020-11-22 Outpatient Gerardo [facility] [id number] Univers 08:15:00 08:15:00 FRED [facility] 2020-11-07 2020-11-07 Orders Doctor JACOBS 1.2.840.114 [id number] Univers 00:00:00 00:00:00 Only Unassigned, ASHLI 350.1.13.10 ity [facility] [facility] 4.2.7.2.686 [place] [id number] [address] 2020-09-19 2020-09-19 Orders Doctor REYNALDO 1.2.840.114 [id number] Univers 00:00:00 00:00:00 Only Unassigned, ASHLI 350.1.13.10 ity [facility] [facility] 4.2.7.2.686 [place] [id number] [address] 2020-09-13 2020-09-13 Telephone [facility] 1.2.840.114 [id number] Univers 00:00:00 00:00:00 [facility] 350.1.13.10 it y of [place] 4.2.7.2.686 [place] Professio [phone] [address] 2020-09-11 2020-09-11 Orders Doctor JACOBS 1.2.840.114 [id number] [facility] 00:00:00 00:00:00 Only Unassigned, ASHLI 350.1.13.10 ity [facility] [place] [facility] 4.2.7.2.686 [place] [phone] [address] 2020-08-31 2020-08-31 Telephone [facility] 1.2.840.114 [id number] [facility] 00:00:00 00:00:00 [facility] 350.1.13.10 it y of [place] 4.2.7.2.686 [place] Professio [phone] [address] 2020-08-24 2020-08-24 Orders Doctor JACOBS 1.2.840.114 [id number] Univers 00:00:00 00:00:00 Only Unassigned, ASHLI 350.1.13.10 ity [facility] [place] [facility] 4.2.7.2.686 [place] [phone] [address] 2020-08-17 2020-08-17 Outpatient GORDON PADILLA [facility] [id number] [place] 00:00:00 00:00:[address] 2020-08-17 2020-08-17 Outpatient GORDON PADILLA [place] [id number] 22 [place] 00:00:00 00:00:00 5[address] i 2020-08-17 2020-08-17 Telephone [facility] 1.2.840.114 [id number] Univers 00:00:00 00:00:00 [facility] 350.1.13.10 it y of [place] 4.2.7.2.686 [place] Professio [phone] [facility] 044 [facility] 2020-07-28 2020-07-28 Outpatient GORDON PADILLA [facility] [id number] [place] 00:00:00 00:00:00 302 Method i 2020-07-25 2020-07-25 Outpatient GORDON PADILLA [facility] [id number] [place] 00:00:00 00:00:00 524 Method i 2020-07-17 2020-07-17 [facility] [id number] Univers 14:15:00 14:15:00 FRED [facility] 2020-07-17 2020-07-17 Office [facility] 1.2.840.114 [id number] Univers 08:11:11 09:00:55 Visit [facility] [id number] it y of Aleksey Higgins [id number] [place] Professio [phone] [address] 2020-07-17 2020-07-17 [facility] [id number] Univers 08:15:00 08:15:00 FRED ittahir [facility] 2020-07-14 2020-07-14 Office [facility] 1.2.840.114 [id number] Univers 16:27:16 17:24:43 Visit Brianna Higgins [id number] it[place]h [id number] [phone] [facility] 134 [facility] 2020-07-14 2020-07-14 [facility] [id number] Univers 16:00:00 17:24:43 RBIANNA alberto [facility] 2020-07-142020-07-14 Office Adum, [facility] 1.2.840.114 [id number] Univers 16:00:00 16:30:00 Visit Brianna Higgins [id number] it[id number] [phone] Dc dical nal [address] 2020-07-14 2020-07-14 Outpatient R ADUM, [facility] [id number] Univers 16:00:00 16:00:00 BRIANNA [facility] 2020-07-14 2020-07-14 Outpatient R ADUM, [facility] [id number] Univers 16:00:00 16:00:00 [facility] 2020-07-14 2020-07-14 Outpatient R ADUM, [facility] [id number] Univers 16:00:00 16:00:00 [facility] 2020-07-14 2020-07-14 Outpatient R ADUM, [facility] [id number] Univers 16:00:00 16:00:00 [facility] 2020-07-14 2020-07-14 Outpatient R ADUM, [facility] [id number] Univers 16:00:00 16:00:00 [facility] 2020-07-13 2020-07-13 Outpatient R ADUM, [facility] [id number] Univers 14:00:00 14:00:00 [facility] 2020-07-13 2020-07-13 Outpatient R ADUM, [facility] [id number] Univers 14:00:00 14:00:00 [facility] 2020-07-11 2020-07-11 [facility]phone [facility] 1.2.840.114 [id number] Univers 00:00:00 00:00:00 [facility] [id number] it y of [place]ksey Higgins [id number] [place] Professio [phone] Dc dical nal [address] 2020-07-11 2020-07-11 Orders Doctor JCAOBS 1.2.840.114 [id number] Univers 00:00:00 00:00:00 Only Unassigned, ASHLI [id number] ity of [place] [facility] [id number] [place] as [phone] [facility] [address] 2020-06-30 2020-06-30 Telephone Trevor [facility] 1.2.840.114 [id number] Univers 00:00:00 00:00:00 [facility] [id number] it y of [place] [id number] [place] Professio [phone] Dc dical [facility] [address] One 2020-06-20 2020-06-20 Hospital [facility] 1.2.840.114 [id number] Univers 15:26:07 23:59:00 Encounter Abilio dumont [id number] [id number] [phone] [facility] [address] 2020-06-20 2020-06-20 Outpatient R [facility] [id number] Univers 00:00:00 00:00:00 ABILIO Dumont [facility] 2020-06-13 2020-06-13 Retort Firer 2, Adc Lab [facility] 1.2.840.114 [id number] Univers 11:14:53 11:29:53 Visit Abilio Marcos 350.1.1 3.10 [place] [phone] Dc dical nal [address] 2020-06-13 2020-06-13 Outpatient R [facility] [id number] Univers 11:00:00 11:00:00 ABILIO Dumont [facility] 2020-06-13 2020-06-13 Orders Doctor JACOBS 1.2.840.114 [id number] Univers 00:00:00 00:00:00 Only Unassigned, ASHLI [id number] ity of [place] [facility] [id number] [place] [phone] [place] [address] [address] 2020-04-17 2020-04-17 [facility] 1.2.840.114 [id number] Univers 00:00:00 00:00:00 Outreach Thiago KARINA 350.1.13.10 i ty of [place] [facility] 4.2.7.2.686 [place] [facility] [phone] Dc dical [address] 2020-03-15 2020-03-15 [facility] [id number] Univers 13:43:18 23:59:00 Encounter Fred Higgins [id number] ity of [place]2.[place] [phone] [facility] [address] 2020-03-15 2020-03-15 [facility] [id number] [id number] Univers 13:42:27 13:42:27 Encounter Fred Higgins [id number] ity of [place].2.[place] [phone] [facility] [address] 2020-03-15 2020-03-15 Outpatient R [facility] [id number] Univers 00:00:00 00:00:00 FRED alberto [facility] 2020-03-15 2020-03-15 Orders Doctor REYNALDO 1.2.840.114 [id number] Univers 00:00:00 00:00:00 Only UnassignedASHLI 350.1.13.10 ity of [place] [facility] [id number] [place] as [phone] [address] 2020-03-02 2020-03-02 Orders Doctor JACOBS 1.2.840.114 [id number] Univers 00:00:00 00:00:00 Only UnassignedASHLI 350.1.13.10 ity of [place] [facility] [id number] [place] as [phone] [address] 2020-02-14 2020-02-14 Retort Firer Lab, Adc Fam Pob I [facility] 1.2. 840.114 [id number] Univers 08:52:51 09:12:51 Visit Fred Murray [facility] 350.1.13 .10 ity of [place] 4.2.7.2.686 [place] Professio [phone] [address] One 2020-02-14 2020-02-14 Office [facility] 1.2.840.114 [id number] Univers 08:22:22 08:52:22 Visit Fred [facility] [id number] it y of [place] Higgins 4.2.7.2.686 [place] Professio [phone] [address] One 2020-02-14 2020-02-14 [facility] [id number] [facility] 08:30:00 08:30:00 FRED ity of [facility] 2020-02-14 2020-02-14 Telephone [facility] 1.2.840.114 [id number] Univers 00:00:00 00:00:00 [facility] [id number] it y of [place] Higgins [id number] [place] Professio [phone] [address] 2019-09-03 2019-09-03 Telephone [facility] 1.2.840.114 [id number] Univers 00:00:00 00:00:00 Fred Higgins 350.1.13.10 i ty of [place]2.[place] [phone] [address] 2019-08-31 2019-08-31 Telephone [facility] 1.2.840.114 [id number] Univers 00:00:00 00:00:00 Fred Higgins 350.1.13.10 i ty of [place].2.[place] [phone] [address] 2019-08-31 2019-08-31 Orders Doctor JACOBS 1.2.840.114 [id number] Univers 00:00:00 00:00:00 Only Unassigned, ASHLI 350.1.13.10 ity of [place] [facility] [id number] [place] as [phone] [address] 2019-08-18 2019-08-18 Pre Visit Trevor [facility] 1.2.840.114 [id number] Univers 00:00:00 00:00:00 Outreach [facility] 350.1.13.10 i ty of Edgiovanny Higgins 4.2.7.2.686 [place] Professio [phone] [address] 2019-08-09 2019-08-09 Nurse Nurse, [facility] 1.2.840.114 [id number] Univers 09:35:45 09:50:45 Visit Fred Murray Aleksey Higgins 350.1.1 3.10 ity of [place].2.[place] [phone] [address] 2019-08-09 2019-08-09 Outpatient R [facility] [id number] Univers 09:00:00 09:00:00 ity of [facility] 2019-08-09 2019-08-09 Outpatient R [facility] [id number] Univers 09:00:00 09:00:00 ity of [facility] 2019-07-19 2019-07-19 Orders Doctor JACOBS 1.2.840.114 [id number] Univers 00:00:00 00:00:00 Only Unassigned, ASHLI [id number] ity of [place] [facility] [id number] [place] as [phone] [address] 2019-06-14 2019-06-14 Refill [facility] 1.2.840.114 [id number] Univers 00:00:00 00:00:00 [facility] [id number] it y of [place] 4.2.7.2.686 [place] Professio [phone] [address] 2019-05-13 2019-05-13 [facility] 1.2.840.114 [id number] Univers 00:00:00 00:00:00 [facility] [id number] it y of [place] [id number] [place] Professio [phone] Dc dic[address] Building One 2019-03-06 2019-03-06 [facility] 1.2.840.114 [id number] Univers 00:00:00 00:00:00 [facility] [id number] it y of [place] 4.2.7.2.686 [place] Professio [phone] [address] Office [facility] One 2019-03-02 2019-03-02 [facility] 1.2.840.114 [id number] Univers 00:00:00 00:00:00 [facility] [id number] it y of [place] 4.2.7.2.686 [place] Professio [phone] [address] Office [facility] One 2019-02-12 2019-02-12 Outpatient R TREVOR [facility] [id number] Univers 09:15:00 09:45:45 FRED alberto of [facility] Results This patient has no known results.
[2022-06-17 14:57] LABS: Albumin 3.1 g/dL (3.4-5.0); Bilirubin Total 0.3 mg/dL (0.2-1.0); Protein, Total 7.8 g/dL (6.4-8.2)
[2022-06-17] MEDS ORDERED: FAMOTIDINE 20 MG/2 ML VIAL IV ONE (15:01)
[2022-06-17] MEDS ORDERED: NA CHLORIDE 0.9% 1,000 ML ONE (15:01)
[2022-06-17] MEDS ORDERED: ONDANSETRON 4 MG/2 ML VIAL ONE (15:02)
[2022-06-17 15:10] LABS: Absolute Lymphocytes (CBC) 1.3 K/uL (0.7-4.9); Hematocrit 32.2 % (36.0-45.0); Lymphocytes % 8.8 % (15.3-44.8); MCV 86.7 fL (80-100); MPV 8.5 fL (7.6-11.3); RBC Red Blood Cell Count 3.71 M/uL (3.86-4.86)
[2022-06-17] MEDS ORDERED: metroNIDAZOLE 500 MG TABLET ONE (17:04)
[2022-06-17] MEDS ORDERED: CIPROFLOXACIN HCL 500 MG TAB ONE (17:04)
[2022-06-17 18:09] LABS: Specific Gravity 1.015 (1.005-1.030); Urine Bacteria None Seen /HPF (<20); Urine Bilirubin NEGATIVE (Negative); Urine Blood Trace (Negative); Urine Clarity Clear (Clear); Urine Color Light-Yellow (Yellow); Urine Glucose NEGATIVE (Negative); Urine Protein 1+ (Negative); Urine RBC <5 /HPF (None Seen); Urine Urobilinogen Normal (Normal); Urine pH 5.5 (5.0-7.0)
--- NOTE | 2022-06-17 18:21 | RAD REPORT ---
EXAM DESCRIPTION: CT - Abdomen Pelvis W Contrast - 06/17/2022 5:47 pm CLINICAL HISTORY: ABD PAIN COMPARISON: CT ABD PELVIS W CONTRAST dated 04/13/2014 TECHNIQUE: Thin cut axial CT imaging of the abdomen and pelvis was performed following intravenous a dministration of 95 mL Isovue 300. Multiplanar reformats were generated and reviewed. All CT scans are performed using dose optimization technique as appropriate and may include automated exposure control or mA/KV adjustment according to patient size. FINDINGS: No suspicious findings in the lung bases. The liver, spleen, and pancreas show no suspicious findings. Gallbladder and biliary tree are also wi thout suspicious finding. Multifocal renal cortical thinning or scarring. Small renal cortical cysts bilaterally the largest at the left lower to midpole, measuring 13 millimeter. Long segment wall thickening, mucosal hyperenhancement, and fat stranding in the 3D mesenteries, gabriela g the distal ileum there is caliber prominence of the distal ileum, up to 3.7 centimeter in the left lower quadrant, with luminal caliber tapering towards the terminal ileum. The ileal loops proximal to this, demonstrate mild distention with air-fluid levels. No evidence of free air, free fluid, or abn ormal fluid collections. The appendix is normal in appearance. No hernia, mass or bulky lymphadenopat hy. The urinary bladder is without significant finding. No suspicious bony findings. IMPRESSION: Long segment wall thickening and inflammation along the distal ileum, with luminal calib er smooth tapering towards the terminal ileum. Mild distention and fluid filling of the ileal loops p roximal to this. Findings may relate to severe enteritis with superimposed ileus. Possibility of infl ammatory bowel disease also remains, with possible stricturing along the terminal ileum. The findings were communicated to Eliseo Garcia on 06/17/2022 at 18:14 hours.
--- NOTE | 2022-06-17 19:15 | ER ---
Nurse's Notes [facility] Name: Brianna Montenegro Age: 67 yrs Sex: Female : 1955 Arrival Date: 06/17/2022 Time: 11:40 Bed 18 Private MD: Rashard Danielson Diagnosis: Abdominal pain, unspecified Presentation: 06/17 13:16 Chief complaint: Patient states: cholecystectomy scheduled for tomorrow with Dr. whitney Garcia. Pt c/o LLQ pain with fever up to 102.0* F x 2 days ago. Pt reports nausea/vomiting/diarrhea. Coronavirus screen: fever. Ebola Screen: Patient denies travel to an Ebola-affected area in the 21 days before illness onset. Initial Sepsis Screen: Does the patient meet any 2 criteria? Temp <36.0*C (96.8*F)) or > 38.3*C (100.9*F). Does the patient have a suspected source of infection? Yes:. Risk Assessment: Do you want to hurt yourself or someone else? Patient reports no desire to harm self or others. Onset of symptoms was June 2022. 13:16 Acuity: MARVIN 3 aa5 13:16 Method Of Arrival: Ambulatory aa5 Historical: - Allergies: 13:14 [place] (Upset stomach); aa5 - PMHx: 13:14 Hypertensive disorder; RLS; Hypercholesterolemia; aa5 - PSHx: 13:14 leg stent; aa5 - Immunization history:: Adult Immunizations unknown. - Social history:: Smoking status: Patient reports the use of cigarette tobacco products, smokes one pack cigarettes per day. Screenin:29 [facility] ED Fall Risk Assessment (Adult) History of falling in the last 3 months, kc6 including since admission No falls in past 3 months (0 pts) Confusion or Disorientation No (0 pts) Intoxicated or Sedated No (0 pts) Impaired Gait No (0 pts) Mobility Assist Device Used No (0 pt) Altered Elimination No (0 pt) Score/Fall Risk Level 0 - 2 = Low Risk Oriented to surroundings, Maintained a safe environment, Educated pt \T\ family on fall prevention, incl call for assistance when getting out of bed, Assessed \T\ reinforced patient's understanding of fall precautions, Hourly rounding (assess needs \T\ fall precautionary measures) done. Abuse screen: Denies threats or abuse. Denies injuries from another. Nutritional screening: No deficits noted. Tuberculosis screening: No symptoms or risk factors identified. Assessment: 14:29 General: Appears in no apparent distress. comfortable, Behavior is calm, cooperative, kc6 appropriate for age. Pain: Complains of pain in left lower quadrant Pain does not radiate. Neuro: Berger Agitation-Sedation Scale (RASS): 0 - Alert and Calm Level of Consciousness is awake, alert, obeys commands, Oriented to person, place, time, situation, Appropriate for age. Cardiovascular: Capillary refill < 3 seconds. Respiratory: Airway is patent Trachea midline Respiratory effort is even, unlabored, Respiratory pattern is regular, symmetrical. GI: Abdomen is flat, non-distended, Bowel sounds present X 4 quads. Abd is soft X 4 quads Abdomen is tender to palpation in left lower quadrant Reports diarrhea, nausea, vomiting. : No signs and/or symptoms were reported regarding the genitourinary system. EENT: No signs and/or symptoms were reported regarding the EENT system. Derm: No signs and/or symptoms reported regarding the dermatologic system. Skin is intact, Skin is pink, warm \T\ dry. Musculoskeletal: No signs and/or symptoms reported regarding the musculoskeletal system. Circulation, motion, and sensation intact. Capillary refill < 3 seconds, Range of motion: intact in all extremities. 15:25 Reassessment: Patient appears in no apparent distress at this time. No changes from kc6 previously documented assessment. Patient and/or family updated on plan of care and expected duration. Pain level reassessed. Patient is alert, oriented x 3, equal unlabored respirations, skin warm/dry/pink. 16:20 Reassessment: Patient appears in no apparent distress at this time. No changes from kc6 previously documented assessment. Patient and/or family updated on plan of care and expected duration. Pain level reassessed. Patient is alert, oriented x 3, equal unlabored respirations, skin warm/dry/pink. 17:18 Reassessment: Patient appears in no apparent distress at this time. No changes from kc6 previously documented assessment. Patient and/or family updated on plan of care and expected duration. Pain level reassessed. Patient is alert, oriented x 3, equal unlabored respirations, skin warm/dry/pink. 18:15 Reassessment: Patient appears in no apparent distress at this time. No changes from kc6 previously documented assessment. Patient and/or family updated on plan of care and expected duration. Pain level reassessed. Patient is alert, oriented x 3, equal unlabored respirations, skin warm/dry/pink. 19:10 Reassessment: ASSUMED CARE OF PT. PT SITTING IN BED WATCHING TV. NO DISTRESS NOTED. VS jj7 STABLE. AT BEDSIDE. Vital Signs: 13:16 BP 193 / 66; Pulse 77; Resp 18 S; Temp 98.5(O); Pulse Ox 98% on R/A; Weight 63.96 kg aa5 (R); Height 5 ft. 2 in. (R); 14:32 BP 185 / 81; Pulse 79; Resp 18 S; Pulse Ox 100% on R/A; kc6 15:25 BP 168 / 50; Pulse 88; Resp 19 S; Pulse Ox 97% on R/A; kc6 16:23 BP 163 / 42; Pulse 88; Resp 18 S; Pulse Ox 91% on R/A; kc6 17:18 BP 179 / 65; Pulse 88; Resp 17 S; Pulse Ox 94% on R/A; kc6 18:15 BP 164 / 48; Pulse 80; Resp 18 S; Pulse Ox 98% on R/A; kc6 19:58 BP 155 / 55; Pulse 79; Resp 17; Temp 101.4; Pulse Ox 94% ; jj7 20:26 BP 147 / 49; Pulse 79; Resp 18; Temp 101.4; Pulse Ox 95% ; jj7 21:17 BP 143 / 51; Pulse 71; Resp 20; Pulse Ox 95% ; jj7 13:16 Body Mass Index 25.79 (63.96 kg, 157.48 cm) aa5 ED Course: 12:08 Patient arrived in ED. am2 12:08 Rashard Danielson MD is Private Physician. am2 12:37 Eliseo Garcia MD is Attending Physician. kdr 13:14 Arm band placed on. aa5 13:18 Triage completed. aa5 14:19 Yudith Boss, FARZANEH is Primary Nurse. kc6 14:29 Patient has correct armband on for positive identification. Bed in low position. Call kc6 light in reach. Side rails up X 1. Adult w/ patient. 14:29 Inserted saline lock: 20 gauge in right antecubital area, using aseptic technique. kc6 Blood collected. 17:48 CT Abd/Pelvis - IV Contrast Only In Process Unspecified. EDMS 17:58 Urinalysis w/ reflexes Sent. kc6 19:14 Wilberto Mccarthy MD is Hospitalizing Provider. kb 20:28 No provider procedures requiring assistance completed. Patient admitted, IV remains in jj7 place. Administered Medications: 15:00 Drug: NS 0.9% IV 1000 ml Route: IV; Rate: 1 bolus; Site: right antecubital; kc6 16:00 Follow up: Response: No adverse reaction; IV Status: Completed infusion; IV Intake: kc6 1000ml 15:00 Drug: Ondansetron IVP 4 mg Route: IVP; Site: right antecubital; kc6 16:00 Follow up: Response: No adverse reaction; Nausea is decreased kc6 15:00 Drug: Famotidine IVP 20 mg Route: IVP; Site: right antecubital; kc6 16:00 Follow up: Response: No adverse reaction kc6 17:01 Drug: Ciprofloxacin PO 500 mg Route: PO; kc6 17:47 Follow up: Response: No adverse reaction kc6 17:01 Drug: metroNIDAZOLE PO 500 mg Route: PO; kc6 17:47 Follow up: Response: No adverse reaction kc6 20:00 Drug: Nicoderm CQ Transdermal Patch 21 mg/24 hr 1 patches {Note: LEFT ARM.} Route: jj7 Transdermal; Site: affected area; 20:25 Drug: Acetaminophen PO 650 mg Route: PO; jj7 Medication: 20:28 VIS not applicable for this client. jj7 Intake: 16:00 IV: 1000ml; Total: 1000ml. kc6 Outcome: 19:14 Decision to Hospitalize by Provider. kb 20:35 Admitted to Med/surg accompanied by tech, via wheelchair, room 211, Report called to jorje MARTINES RN \T\2034 20:35 Condition: improved 21:19 Patient left the ED. j7 Signatures: Dispatcher [employer] EDMS January Tobin, CYNTHIA TERRELL-Eliseo Arevalo MD MD kdr Calderon, Audri RN RN [email or web address] Angela Owens am2 Yudith Boss RN RN kc6 Alonzo Mathis RN RN jj7 Corrections: (The following items were deleted from the chart) 13:16 13:14 Allergies: Morphine; aa5 aa5
--- NOTE | 2022-06-17 19:15 | EDPHYS ---
Physician Documentation [facility] Name: Brianna Montenegro Age: 67 yrs Sex: Female : 1955 Arrival Date: 06/17/2022 Time: 11:40 Bed 18 Private MD: Rashard Danielson ED Physician Eliseo Garcia HPI: 06/17 17:04 This 67 yrs old Female presents to ER via Ambulatory with complaints of Fever, kdr Abdominal Pain, Nausea/Vomiting. 17:04 Patient complains of left lower quadrant pain that does radiate up her left side and kdr across her upper abdomen for about the last 2 days. She reports a fever of 102.0 at home. She is scheduled to have her gallbladder out tomorrow with Dr. Garcia. Patient otherwise appears to be in generally good health without any acute or emergent intervention required on admission to the ED. Onset: The symptoms/episode began/occurred gradually, 2 day(s) ago. Severity of symptoms: At their worst the symptoms were mild moderate in the emergency department the symptoms are unchanged. The patient has not experienced similar symptoms in the past. The patient has been recently seen by a physician: Dr. Garcia. Historical: - Allergies: 13:14 Lynn (Upset stomach); aa5 - PMHx: 13:14 Hypertensive disorder; RLS; Hypercholesterolemia; aa5 - PSHx: 13:14 leg stent; aa5 - Immunization history:: Adult Immunizations unknown. - Social history:: Smoking status: Patient reports the use of cigarette tobacco products, smokes one pack cigarettes per day. ROS: 17:04 Constitutional: Negative for chills, and weight loss, Eyes: Negative for injury, pain, kdr redness, and discharge, ENT: Negative for injury, pain, and discharge. 17:04 Neck: Negative for injury, pain, and swelling, Cardiovascular: Negative for chest pain, palpitations, and edema, Respiratory: Negative for shortness of breath, cough, wheezing, and pleuritic chest pain, Back: Negative for injury and pain, : Negative for injury, bleeding, discharge, and swelling, MS/Extremity: Negative for injury and deformity, Skin: Negative for injury, rash, and discoloration, Neuro: Negative for headache, weakness, numbness, tingling, and seizure activity. Psych: Negative for depression, anxiety, suicide ideation, homicidal ideation, and hallucinations, Allergy/Immunology: Negative for hives, rash, and allergies, Endocrine: Negative for neck swelling, polydipsia, polyuria, polyphagia, and marked weight changes, Hematologic/Lymphatic: Negative for swollen nodes, abnormal bleeding, and unusual bruising. 17:04 Constitutional: Positive for fatigue, fever, malaise, poor PO intake. 17:04 Abdomen/GI: Positive for abdominal pain, nausea, Negative for abdominal distension, black/tarry stool, rectal pain, rectal bleeding, bowel incontinence. Exam: 17:04 Constitutional: This is a well developed, well nourished patient who is awake, alert, kdr and in no acute distress. Head/Face: Normocephalic, atraumatic. Eyes: Pupils equal round and reactive to light, extra-ocular motions intact. Lids and lashes normal. Conjunctiva and sclera are non-icteric and not injected. Cornea within normal limits. Periorbital areas with no swelling, redness, or edema. Neck: Trachea midline, no thyromegaly or masses palpated, and no cervical lymphadenopathy. Supple, full range of motion without nuchal rigidity, or vertebral point tenderness. No Meningismus. Chest/axilla: Normal chest wall appearance and motion. Nontender with no deformity. No lesions are appreciated. Cardiovascular: Regular rate and rhythm with a normal S1 and S2. No gallops, murmurs, or rubs. Normal PMI, no JVD. No pulse deficits. Respiratory: Lungs have equal breath sounds bilaterally, clear to auscultation and percussion. No rales, rhonchi or wheezes noted. No increased work of breathing, no retractions or nasal flaring. Back: No spinal tenderness. No costovertebral tenderness. Full range of motion. Skin: Warm, dry with normal turgor. Normal color with no rashes, no lesions, and no evidence of cellulitis. MS/ Extremity: Pulses equal, no cyanosis. Neurovascular intact. Full, normal range of motion. Neuro: Awake and alert, GCS 15, oriented to person, place, time, and situation. Cranial nerves II-XII grossly intact. Motor strength 5/5 in all extremities. Sensory grossly intact. Cerebellar exam normal. Normal gait. Psych: Awake, alert, with orientation to person, place and time. Behavior, mood, and affect are within normal limits. 17:04 Abdomen/GI: Inspection: obese Bowel sounds: diminished, in all quadrants, Palpation: soft, mild abdominal tenderness, mass, is not appreciated, rebound tenderness, is not appreciated. Vital Signs: 13:16 BP 193 / 66; Pulse 77; Resp 18 S; Temp 98.5(O); Pulse Ox 98% on R/A; Weight 63.96 kg aa5 (R); Height 5 ft. 2 in. (R); 14:32 BP 185 / 81; Pulse 79; Resp 18 S; Pulse Ox 100% on R/A; kc6 15:25 BP 168 / 50; Pulse 88; Resp 19 S; Pulse Ox 97% on R/A; kc6 16:23 BP 163 / 42; Pulse 88; Resp 18 S; Pulse Ox 91% on R/A; kc6 17:18 BP 179 / 65; Pulse 88; Resp 17 S; Pulse Ox 94% on R/A; kc6 18:15 BP 164 / 48; Pulse 80; Resp 18 S; Pulse Ox 98% on R/A; kc6 19:58 BP 155 / 55; Pulse 79; Resp 17; Temp 101.4; Pulse Ox 94% ; jj7 20:26 BP 147 / 49; Pulse 79; Resp 18; Temp 101.4; Pulse Ox 95% ; jj7 21:17 BP 143 / 51; Pulse 71; Resp 20; Pulse Ox 95% ; jj7 13:16 Body Mass Index 25.79 (63.96 kg, 157.48 cm) aa5 MDM: 17:04 Data reviewed: vital signs, nurses notes, lab test result(s), radiologic studies. kdr 19:14 Patient medically screened. kb 06/17 12:57 Order name: CBC with Diff; Complete Time: 16:41 kdr 06/17 12:57 Order name: CMP; Complete Time: 16:41 kdr 06/17 12:57 Order name: Lipase; Complete Time: 16:41 kdr 06/17 14:32 Order name: Urinalysis w/ reflexes; Complete Time: 18:11 kdr 06/17 16:41 Order name: CT Abd/Pelvis - IV Contrast Only; Complete Time: 19:09 kdr 06/17 12:57 Order name: IV Saline Lock; Complete Time: 14:29 kdr 06/17 12:57 Order name: Labs collected and sent; Complete Time: 14:29 kdr Administered Medications: 15:00 Drug: NS 0.9% IV 1000 ml Route: IV; Rate: 1 bolus; Site: right antecubital; kc6 16:00 Follow up: Response: No adverse reaction; IV Status: Completed infusion; IV Intake: kc6 1000ml 15:00 Drug: Ondansetron IVP 4 mg Route: IVP; Site: right antecubital; kc6 16:00 Follow up: Response: No adverse reaction; Nausea is decreased kc6 15:00 Drug: Famotidine IVP 20 mg Route: IVP; Site: right antecubital; kc6 16:00 Follow up: Response: No adverse reaction kc6 17:01 Drug: Ciprofloxacin PO 500 mg Route: PO; kc6 17:47 Follow up: Response: No adverse reaction kc6 17:01 Drug: metroNIDAZOLE PO 500 mg Route: PO; kc6 17:47 Follow up: Response: No adverse reaction kc6 20:00 Drug: Nicoderm CQ Transdermal Patch 21 mg/24 hr 1 patches {Note: LEFT ARM.} Route: jj7 Transdermal; Site: affected area; 20:25 Drug: Acetaminophen PO 650 mg Route: PO; jj7 Disposition Summary: 06/17/22 19:14 Hospitalization Ordered Hospitalization Status: Inpatient Admission kb Provider: Wilberto Mccarthy [facility] ([facility]) kb Condition: Stable kb Problem: new kb Symptoms: are unchanged kb Bed/Room Type: Standard Room Assignment: 211(06/17/22 19:45) Diagnosis - Abdominal pain, unspecified kb Forms: - Medication Reconciliation Form kb - SBAR form kb Signatures: Dispatcher [employer] EDJanuary Mora FNP-C FNP-Ckb Webb, Martha RN RN Eliseo Bustamante MD MD kdr Calderon, Audri RN RN Derick Reynolds FNP-C FNP-Yudith Muñoz RN RN kc6 Alonzo Mathis RN RN jj7 Corrections: (The following items were deleted from the chart) 13:16 13:14 Allergies: Morphine; aa5 aa5 19:45 19:14 kb mw
--- NOTE | 2022-06-17 19:56 | P.HP ---
Certification for Inpatient Patient admitted to: Inpatient With expected LOS: >2 Midnights Patient will require the following post-hospital care: None Practitioner: I am a practitioner with admitting privileges, knowledge of patient current condition, hospital course, and medical plan of care. Services: Services provided to patient in accordance with Admission requirements found in Title 42 Section 412.3 of the Code of Federal Regulations Patient History Date of Service: 06/17/22 Reason for admission: Enteritis/ileus History of Present Illness: 67-year-old female with history of hypertension, restless leg syndrome, hyperlipidemia who frequently deals with bouts of colitis presents to the emergency department with chief complaint of abdominal pain, fevers. She reports has been having intermittent symptoms over the course of the last 3 months which she attributes to colitis, she is seen by general surgery who determined it may be her gallbladder and was scheduled for an outpatient cholecystectomy tomorrow, her pain became worse over the last couple of days also had fever that started approximately 1 week ago and is intermittent over the course of the last 1 week. She was evaluated here in the emergency department her labs are significant for leukocytosis white blood cell count 14.3 hemoglobin 10.6 medic at 32.2 sodium 135 creatinine 1.[address] of the abdomen pelvis with IV contrast was performed which revealed crescentic probably enhancing 11 mm lesion in the fundus of the gallbladder could relate to focal wall thickening or a mass, focal adenomyomatosis less likely accumulation of sludge, also long segment wall thickening and inflammation along the distal ileum with luminal caliber smooth tapering towards the terminal ileum. Findings may relate to severe enteritis with superimposed ileus, possibility of inflammatory bowel disease also remains with possible structure along the terminal ileum. Patient was evaluated by general surgery at bedside who recommends admission, n.p.o., IVF, IV antibiotics and GI consult. Allergies No Known Allergies Allergy (Verified 04/13/14 12:47) Home Medications: Irbesartan [Avapro] 300 mg PO DAILY 04/13/14 Ropinirole HCl [Requip] 0.5 mg PO BEDTIME 04/13/14 Simvastatin [Zocor] 80 mg PO BEDTIME 04/13/14 carvediloL [Coreg*] 25 mg PO BID 04/13/14 Ciprofloxacin HCl [Cipro] 500 mg PO BID #14 tablet 04/14/14 metroNIDAZOLE [Flagyl*] 500 mg PO TID #21 tablet 04/14/14 - Past Medical/Surgical History Diabetic: No -: heart valve enlarged 2005 -: hypertension 2005 -: hypercholesteremia 1973 -: restless leg syndrome -: PAD -: Leg stent Psychosocial/ Personal History: Patient lives at home with her - Family History Mother -: Heart disease, Hypertension, Diabetes, Stroke, Kidney disease Notes: alcoholic - Social History Smoking Status: Current every day smoker Counseled patient to stop smoking for: less than 10 minutes Alcohol use: No CD- Drugs: No Caffeine use: Yes Place of Residence: Home Review of Systems 10-point ROS is otherwise unremarkable General: Fever, Chills, Malaise Gastrointestinal: Nausea, Vomiting, Abdominal Pain Physical Examination - Physical Exam General: Alert, In no apparent distress, Oriented x3 HEENT: Atraumatic, PERRLA, Mucous membr. moist/pink, EOMI, Sclerae nonicteric Neck: Supple, 2+ carotid pulse no bruit, No LAD, Without JVD or thyroid abnormality Respiratory: Clear to auscultation bilaterally, Normal air movement Cardiovascular: Regular rate/rhythm, Normal S1 S2 Capillary refill: <2 Seconds Gastrointestinal: Normal bowel sounds, Tenderness (LLQ moderate tenderness ) Musculoskeletal: No tenderness Integumentary: No rashes Neurological: Normal speech, Normal strength at 5/5 x4 extr, Normal tone, Normal affect - Studies Laboratory Data (last 24 hrs) 06/17/22 14:26: Sodium 135 L, Potassium 4.0, BUN 17, Creatinine 1.34 H, Glucose 99, Total Bilirubin 0.3, AST 13 L, ALT 23, Alkaline Phosphatase 91, Lipase 35 06/17/22 14:26: WBC 14.30 H, Hgb 10.6 L, Hct 32.2 L, Plt Count 258 Assessment and Plan - Plan Assessment: Wall thickening of ileum suspected severe enteritis with ileus versus inflammatory bowel disease with possible stricture Hypertension RLS Hyperlipidemia Plan: Wall thickening of ileum suspected severe enteritis with ileus versus inflammatory bowel disease with possible stricture Seen by surgery in ED, n.p.o., IVF, IV antibiotics, as needed pain medications and antiemetics, GI consult. Initial plan was for cholecystectomy outpatient per surgery but pain is primarily left lower quadrant at this time, no right upper quadrant tenderness noted on exam. GI consult placed. Hypertension RLS Hyperlipidemia Hold oral medications restart when appropriate DVT PPX:SCD Code status:Full code Discharge Plan: Home Plan to discharge in: 48 Hours - Advance Directives Does patient have a Living Will: No Does patient have a Durable POA for Healthcare: No - Code Status/Comfort Care Code Status Assessed: Yes (Full code) Critical Care: No Time Spent Managing Pts Care (In Minutes): 70
[2022-06-17] MEDS ORDERED: NICOTINE 21 MG/PAT TD ONE (20:02)
[2022-06-17] MEDS ORDERED: ACETAMINOPHEN 325 MG TABLET ONE (20:27)
[2022-06-17] MEDS ORDERED: NA CHLORIDE 0.9% 1,000 ML IV SCH (21:04)
[2022-06-17] MEDS ORDERED: ONDANSETRON 4 MG/2 ML VIAL IV PRN (21:04)
[2022-06-17] MEDS ORDERED: SODIUM CHLORIDE 0.9% 10ML INJ IV PRN (21:04)
[2022-06-18] MEDS: PIPER TAZO 3.375 GM in NA CHLORIDE 0.9% 100 ML IV SCH ×3 (00:58→16:56)
[2022-06-18] MEDS: MORPHINE 2 MG/ML SYR IV PRN (01:09)
[2022-06-18 03:22] LABS: Absolute Lymphocytes (CBC) 1.2 K/uL (0.7-4.9); Hematocrit 26.5 % (36.0-45.0); Lymphocytes % 12.2 % (15.3-44.8); MCV 86.3 fL (80-100); MPV 8.2 fL (7.6-11.3); RBC Red Blood Cell Count 3.07 M/uL (3.86-4.86)
[2022-06-18 03:51] LABS: Albumin 2.3 g/dL (3.4-5.0); Bilirubin Total 0.3 mg/dL (0.2-1.0); Magnesium 1.8 mg/dL (1.6-2.4); Potassium 4.3 mEq/L (3.5-5.1); Protein, Total 6.2 g/dL (6.4-8.2)
[2022-06-18] MEDS: Ringers Lactate 1,000 ML IV SCH ×2 (06:15→17:02)
[2022-06-18] MEDS ORDERED: MAGNESIUM SULFATE 1 gm IVPB 1 GM/100 ML BAG IV ONE (06:28)
--- NOTE | 2022-06-18 06:57 | P.PN ---
Date of Service: 06/18/22 Subjective: Pain is more tolerable today, feels less sharp in sensation no nausea / vomiting; remains NPO febrile yesterday; low grade temp 99.9 this morning ROS: 10 point ROS as noted above, otherwise negative Physical Exam: GEN: Alert, oriented, NAD HEENT: Normal conjunctiva, sclera anicteric CV: Regular rate and rhythm, no edema Pulm: Nonlabored respirations on room air ABD: Soft, moderate LLQ tenderness, nondistended Neuro: Normal speech, normal affect vitals reviewed Problem List: Wall thickening of ileum suspected severe enteritis with ileus versus inflammatory bowel disease with possible stricture 11mm Gallbladder lesion Hypertension RLS Hyperlipidemia Wall thickening of ileum suspected severe enteritis with ileus versus inflammatory bowel disease with possible stricture 11mm Gallbladder lesion Initial plan was for cholecystectomy outpatient per surgery but pain is primarily LLQ at this time, no RUQ tenderness noted on exam Seen by general surgery in ED, recommended GI consult for enteritis/ileus / possible IBD bowel rest, IVF empiric antibiotics - zosyn f/u GI / surgery recommendations pain medications and antiemetics as needed Hypertension RLS Hyperlipidemia Hold oral medications restart when appropriate / taking PO VTE: SCD Code: Full Dispo: Home 2-3 days
[2022-06-18] MEDS: PANTOPRAZOLE 40 MG INJ IVP SCH (10:19)
[2022-06-18] MEDS: VALSARTAN 160 MG TAB PO SCH (17:09)
[2022-06-18] MEDS: carvediloL 25 MG TAB PO SCH (20:42)
[2022-06-19] MEDS: PIPER TAZO 3.375 GM in NA CHLORIDE 0.9% 100 ML IV SCH ×3 (00:18→17:39)
[2022-06-19] MEDS: Ringers Lactate 1,000 ML IV SCH ×3 (02:00→21:42)
[2022-06-19 04:33] LABS: Absolute Lymphocytes (CBC) 1.3 K/uL (0.7-4.9); Hematocrit 24.5 % (36.0-45.0); Lymphocytes % 14.3 % (15.3-44.8); MCV 86.1 fL (80-100); MPV 8.4 fL (7.6-11.3); RBC Red Blood Cell Count 2.85 M/uL (3.86-4.86)
[2022-06-19 04:59] LABS: Albumin 2.1 g/dL (3.4-5.0); Bilirubin Total 0.4 mg/dL (0.2-1.0); Magnesium 2.1 mg/dL (1.6-2.4); Potassium 3.8 mEq/L (3.5-5.1); Protein, Total 5.8 g/dL (6.4-8.2)
[2022-06-19] MEDS ORDERED: POTASSIUM CL SA 10 MEQ TAB PO ONE ×2 (05:07→09:00)
--- NOTE | 2022-06-19 07:08 | P.PN ---
Date of Service: 06/19/22 Subjective: reports dark stool for ~1 week (claims it comes and goes every 4-6 weeks for years) pain has improved, wants to go home ; has not taken any PO yet no nausea / vomiting afebrile reports she's been told she has collagenous colitis ROS: 10 point ROS as noted above, otherwise negative Physical Exam: GEN: Alert, oriented, NAD HEENT: Normal conjunctiva, sclera anicteric CV: Regular rate and rhythm, no edema Pulm: Nonlabored respirations on room air ABD: Soft, mild LLQ tenderness, nondistended Neuro: Normal speech, normal affect vitals reviewed Problem List: Wall thickening of ileum suspected severe enteritis with ileus versus inflammatory bowel disease with possible stricture 11mm Gallbladder lesion h/o collagenous colitis - per patient lower GI bleed acute on chronic anemia, blood loss Hypertension RLS Hyperlipidemia Wall thickening of ileum suspected severe enteritis with ileus versus inflammatory bowel disease with possible stricture 11mm Gallbladder lesion Initial plan was for cholecystectomy outpatient per surgery but pain is primarily LLQ at this time, no RUQ tenderness noted on exam Seen by general surgery in ED, recommended GI consult for enteritis/ileus / possible IBD bowel rest, IVF empiric antibiotics - maria luisa GI consulted NPO for tentative scope 06/20 - EGD/C-scope melena prior to admission, no BM since admitted hgb down from 10s to 8s recheck this evening suspect GI bleed from enteritis, given recent black stools check iron studies, suspect depleted as well pain medications and antiemetics as needed Hypertension RLS Hyperlipidemia restarted VTE: SCD Code: Full Dispo: Home 1-2 days
[2022-06-19 07:28] LABS: RBC Red Blood Cell Count 2.85 M/uL (3.86-4.86)
[2022-06-19 07:48] LABS: Ferritin 198.5 ng/mL (8-388)
[2022-06-19] MEDS: PANTOPRAZOLE 40 MG INJ IVP SCH (08:18)
[2022-06-19] MEDS: VALSARTAN 160 MG TAB PO SCH (08:19)
[2022-06-19] MEDS: carvediloL 25 MG TAB PO SCH ×2 (08:19→20:48)
[2022-06-19] MEDS ORDERED: BISACODYL E.C. 5 MG TAB PO ONE (11:53)
[2022-06-19] MEDS ORDERED: GOLYTELY 4000 ML PO ONE (14:00)
[2022-06-19] MEDS ORDERED: HYDRALAZINE HCL 20 MG/ML VIAL IV PRN (14:14)
[2022-06-19] MEDS ORDERED: SOD FERRIC GLUC COMPLX/SUCROSE 125 MG in NA CHLORIDE 0.9% 100 ML IV SCH (14:30)
[2022-06-19] MEDS: hydroCHLOROthiazide 12.5 MG CAP PO SCH (14:44)
[2022-06-19] MEDS: MORPHINE 2 MG/ML SYR IV PRN (17:18)
[2022-06-19] MEDS ORDERED: METHYLPREDNISOLONE 40 MG INJ IV ONE (17:30)
[2022-06-19 18:50] LABS: Hematocrit 31.5 % (36.0-45.0); MCV 86.4 fL (80-100); MPV 7.8 fL (7.6-11.3); RBC Red Blood Cell Count 3.64 M/uL (3.86-4.86)
[2022-06-19] MEDS ORDERED: HYDRALAZINE HCL 20 MG/ML VIAL IV ONE (18:56)
[2022-06-20] MEDS: PIPER TAZO 3.375 GM in NA CHLORIDE 0.9% 100 ML IV SCH ×3 (01:17→16:14)
[2022-06-20 02:39] LABS: Absolute Lymphocytes (CBC) 0.5 K/uL (0.7-4.9); Hematocrit 30.3 % (36.0-45.0); Lymphocytes % 4.6 % (15.3-44.8); MCV 86.4 fL (80-100); MPV 7.9 fL (7.6-11.3); RBC Red Blood Cell Count 3.51 M/uL (3.86-4.86)
[2022-06-20 02:48] LABS: Albumin 2.4 g/dL (3.4-5.0); Bilirubin Total 0.4 mg/dL (0.2-1.0); Potassium 4.2 mEq/L (3.5-5.1); Protein, Total 6.6 g/dL (6.4-8.2)
[2022-06-20 04:58] LABS: Blood Morphology Comment NOT SEEN (NOT SEEN); Platelet Estimate ADEQ
--- NOTE | 2022-06-20 07:18 | P.PN ---
Date of Service: 06/20/22 Subjective: Feeling much better and wanting to go home felt very nauseated a few minutes after taking iron yesterday, +BP spiked Abdomen feels less tender, Afebrile has not taken any PO yet NPO for scope no bleeding overnight ROS: 10 point ROS as noted above, otherwise negative Physical Exam: GEN: Alert, oriented, NAD HEENT: Normal conjunctiva, sclera anicteric CV: Regular rate and rhythm, no edema Pulm: Nonlabored respirations on room air ABD: Soft, mild LLQ tenderness, nondistended Neuro: Normal speech, normal affect vitals reviewed Problem List: Wall thickening of ileum suspected severe enteritis with ileus versus in flammatory bowel disease with possible stricture 11mm Gallbladder lesion h/o collagenous colitis - per patient lower GI bleed acute on chronic anemia, blood loss Hypertension RLS Hyperlipidemia Wall thickening of ileum suspected severe enteritis with ileus versus inflammatory bowel disease with possible stricture 11mm Gallbladder lesion Initial plan was for cholecystectomy outpatient per surgery but pain is primarily LLQ at this time, no RUQ tenderness noted on exam Seen by general surgery in ED, recommended GI consult for enteritis/ileus / possible IBD dc IVF, CLD after c-scope empiric antibiotics - maria luisa GI consulted NPO for tentative scope 06/20 - EGD/C-scope attempt to advance diet lower GI bleed acute on chronic anemia, blood loss melena prior to admission, no BM since admitted hgb down from 10s to 8s suspect GI bleed from enteritis, given recent black stools check iron studies, suspect depleted as well pain medications and antiemetics as needed IV iron given 06/19, pt with suspected reaction leading to nausea and hypertension dc iv iron trend h/h Hypertension RLS Hyperlipidemia restarted home meds VTE: SCD given drop in hgb Code: Full Dispo: Home 1-2 days once tolerating diet, labs stable/improved, afebrile
[2022-06-20] MEDS: hydroCHLOROthiazide 12.5 MG CAP PO SCH (08:39)
[2022-06-20] MEDS: PANTOPRAZOLE 40 MG INJ IVP SCH (08:40)
[2022-06-20] MEDS: carvediloL 25 MG TAB PO SCH (08:43)
[2022-06-20] MEDS: Ringers Lactate 1,000 ML IV SCH (08:44)
[2022-06-20] MEDS: VALSARTAN 160 MG TAB PO SCH (08:50)
[2022-06-20 09:37] VITALS: BMI 25.7
[2022-06-20] MEDS ORDERED: Ringers Lactate 1,000 ML IV ONE (13:20)
[2022-06-20] MEDS ORDERED: propofoL 200 MG/20 ML VIAL IV ONE ×2 (13:47)
[2022-06-20] MEDS ORDERED: HYDRALAZINE HCL 20 MG/ML VIAL ONE (14:16)
[2022-06-20 15:23] VITALS: BP 117/92; O2SAT 94
[2022-06-20 16:33] VITALS: TEMP 97.9
--- NOTE | 2022-06-21 09:48 | P.DS ---
Admission Date: 06/17/22 Discharge Date: 06/20/22 Disposition: AMA-LEFT AGAINST MEDICAL ADVIC Reason for Admission: Enteritis/ileus Consultations: Gastrointestinal - Dr. Rosales General Surgery - Dr. Garcia Brief History of Present Illness: 67-year-old female with history of hypertension, restless leg syndrome, hyperlipidemia who frequently deals with bouts of colitis presents to the emergency department with chief complaint of abdominal pain, fevers. She reports has been having intermittent symptoms over the course of the last 3 months which she attributes to colitis, she is seen by general surgery who determined it may be her gallbladder and was scheduled for an outpatient cholecystectomy tomorrow, her pain became worse over the last couple of days also had fever that started approximately 1 week ago and is intermittent over the course of the last 1 week. She was evaluated here in the emergency department her labs are significant for leukocytosis white blood cell count 14.3 hemoglobin 10.6 medic at 32.2 sodium 135 creatinine 1.[address] of the abdomen pelvis with IV contrast was performed which revealed crescentic probably enhancing 11 mm lesion in the fundus of the gallbladder could relate to focal wall thickening or a mass, focal adenomyomatosis less likely accumulation of sludge, also long segment wall thickening and inflammation along the distal ileum with luminal caliber smooth tapering towards the terminal ileum. Findings may relate to severe enteritis with superimposed ileus, possibility of inflammatory bowel disease also remains with possible structure along the terminal ileum. Patient was evaluated by general surgery at bedside who recommends admission, n.p.o., IVF, IV antibiotics and GI consult. Hospital Course: Problem List: Wall thickening of ileum suspected severe enteritis with ileus versus inflammatory bowel disease with possible stricture 11mm Gallbladder lesion h/o collagenous colitis - per patient lower GI bleed acute on chronic anemia, blood loss Hypertension RLS Hyperlipidemia Patient was treated empirically with antibiotics, bowel rest, IVF, and pain medication. She had gradual improvement. GI was consulted, recommended EGD and C-scope. Patient was unable to tolerate enough bowel prep and cscope was non- diagnostic. EGD due to melena, Cscope to evaluate for lower GI bleed, possibly evaluate the narrowing seen on CT. GI also ordered small bowel series to be done. Patient's diet was advanced to clears after scopes. She was noted to have significantly elevated blood pressures. She reported being very anxious at the hoszpital,, could not get good sleep, and was upset she was not home. Discussed would like to advance her diet and monitor for another ~12-18hrs as a few sips of liquids / golytely was all she had tolerated so far, in addition to her high blood pressure. Patient initially agreeable, then I was called by nursing staff that she left AMA abrubtly. Patient was to have small bowel series done prior to discharge, and follow up with GI next week after more prep for c-scope. Physical Exam: GEN: Alert, oriented, NAD HEENT: Normal conjunctiva, sclera anicteric CV: Regular rate and rhythm, no edema Pulm: Nonlabored respirations on room air ABD: Soft, mild LLQ tenderness, nondistended Neuro: Normal speech, normal affect Vital Signs/Physical Exam: Temp Pulse Resp BP Pulse Ox 97.9 F 70 16 117/92 H 97 06/20/22 16:00 06/20/22 16:00 06/20/22 16:00 06/20/22 14:56 06/20/22 16:00 Laboratory Data at Discharge: WBC 11.70 thou/uL (4.3-10.9) H 06/20/22 02:16 Hgb 9.8 g/dL (12.0-15.0) L 06/20/22 02:16 Hct 30.3 % (36.0-45.0) L 06/20/22 02:16 Plt Count 265 thou/uL (152-406) 06/20/22 02:16 Sodium 136 mEq/L (136-145) 06/20/22 02:16 Potassium 4.2 mEq/L (3.5-5.1) 06/20/22 02:16 BUN 16 mg/dL (7-18) 06/20/22 02:16 Creatinine 1.01 mg/dL (0.55-1.02) 06/20/22 02:16 Glucose 123 mg/dL (74-106) H 06/20/22 02:16 Magnesium 2.0 mg/dL (1.6-2.4) 06/20/22 02:16 Total Bilirubin 0.4 mg/dL (0.2-1.0) 06/20/22 02:16 AST 30 U/L (15-37) 06/20/22 02:16 ALT 25 U/L (13-56) 06/20/22 02:16 Alkaline Phosphatase 76 U/L (45-117) 06/20/22 02:16 Lipase 35 U/L (13-75) 06/17/22 14:26 Home Medications: Ropinirole HCl [Requip] 1 mg PO BEDTIME 04/13/14 Simvastatin [Zocor] 40 mg PO BEDTIME 04/13/14 carvediloL [Coreg*] 25 mg PO BID 04/13/14 Amitriptyline HCl 10 mg PO DAILY 06/17/22 Aspirin [Adult Low Dose Aspirin EC] 1 tab PO DAILY 06/17/22 Clopidogrel Bisulfate [Plavix*] 75 mg PO DAILY 06/17/22 Melatonin 10 mg PO BEDTIME 06/17/22 Methylcellulose [Fiber Therapy] 1 tab PO DAILY 06/17/22 Olmesartan Medoxomil 40 mg PO DAILY 06/17/22 hydroCHLOROthiazide [Hydrochlorothiazide] 1 tab PO DAILY 06/17/22 Followup: Rashard Danielson MD [Primary Care Provider] - Time spent managing pt's care (in minutes): 45
== END 2022-06-20 18:41 | disposition left against medical advice (07) | DRG 392 ==
LOC: ER 11:40 → ERHOLD 20:24 → 2ND 20:59
PROVIDERS: ADMIT Hospitalist; ATTEND Hospitalist
PROC: 0DJD8ZZ Inspection of Lower Intestinal Tract, Via Natural or Artificial Opening Endoscopic (ICD-10-PCS; 2022-06-20)
PROC: 0DB68ZX Excision of Stomach, Via Natural or Artificial Opening Endoscopic, Diagnostic (ICD-10-PCS; principal; 2022-06-20 12:30)
PROC: 0DB78ZX Excision of Stomach, Pylorus, Via Natural or Artificial Opening Endoscopic, Diagnostic (ICD-10-PCS; 2022-06-20 12:30)
DX: K52.9 Noninfective gastroenteritis and colitis, unspecified (principal); K56.7 Ileus, unspecified; D62 Acute posthemorrhagic anemia; I10 Essential (primary) hypertension; G25.81 Restless legs syndrome; E78.00 Pure hypercholesterolemia, unspecified; K44.9 Diaphragmatic hernia without obstruction or gangrene; K29.00 Acute gastritis without bleeding; K82.9 Disease of gallbladder, unspecified; K64.8 Other hemorrhoids; F17.210 Nicotine dependence, cigarettes, uncomplicated; Z88.5 Allergy status to narcotic agent; Z79.02 Long term (current) use of antithrombotics/antiplatelets; Z53.29 Procedure and treatment not carried out because of patient's decision for other reasons; Z79.899 Other long term (current) drug therapy
CPT/HCPCS: 36415; 74177; 80053; 81001; 82728; 82947; 83540; 83690; 83735; 84466; 85025; 85027; 85044; 88305; 88312; 96361; 96374; 96375; 99285; C9113; J0360; J2270; J2405; J2543; J2704; J2916; J2920; J3475; J7030; J7120; Q9967

== ENCOUNTER 2022-09-24 08:20 | Day surgery (SDC) | payer OTHER ==
[2022-09-24] MEDS: Ringers Lactate 1,000 ML IV ONE ×2 (08:45→10:09)
[2022-09-24] MEDS ORDERED: LIDOCAINE 1% MPF 2 ML AMPULE ONE (10:10)
[2022-09-24] MEDS ORDERED: MIDAZOLAM HCL 2 MG/2 ML INJ ONE (10:10)
[2022-09-24] MEDS ORDERED: propofoL 200 MG/20 ML VIAL IV ONE ×2 (10:10)
[2022-09-24 11:49] VITALS: TEMP 97
[2022-09-24 11:54] VITALS: BP 144/63; O2SAT 95
== END 2022-09-24 11:10 | disposition home or self-care (01) ==
LOC: OR 08:20
PROVIDERS: ATTEND Internal Medicine Gastroenterology
PROC: 0DBN8ZX Excision of Sigmoid Colon, Via Natural or Artificial Opening Endoscopic, Diagnostic (ICD-10-PCS; 2022-09-24)
PROC: 0DBB8ZX Excision of Ileum, Via Natural or Artificial Opening Endoscopic, Diagnostic (ICD-10-PCS; principal; 2022-09-24 09:45)
DX: K52.9 Noninfective gastroenteritis and colitis, unspecified (principal); R93.3 Abnormal findings on diagnostic imaging of other parts of digestive tract; K57.30 Diverticulosis of large intestine without perforation or abscess without bleeding; K63.3 Ulcer of intestine
CPT/HCPCS: 88305; 45380; J2704 ×2; J7120; J2250

== ENCOUNTER 2024-02-26 07:23 | Day surgery (SDC) | payer OTHER ==
[2024-02-05 11:22] LABS: Absolute Eosinophils 0.2 K/uL (0-0.5); Absolute Lymphocytes (CBC) 1.2 K/uL (0.7-4.9); Absolute Monocytes 0.8 K/uL (0.1-1.3); Absolute Neutrophil 7.2 K/uL (1.8-8.0); Basophils % 0.1 % (0-1.3); Eosinophils % 1.6 % (0-4.4); Hematocrit 33.2 % (36.0-45.0); Lymphocytes % 12.5 % (15.3-44.8); MCH 30.2 pg (27.0-35.0); MCHC 33.2 g/dL (32.0-36.0); MPV 8.1 fL (7.6-11.3); Monocytes % 8.8 % (3.3-12.3); Platelets 229 thou/uL (152-406); RBC Red Blood Cell Count 3.65 M/uL (3.86-4.86); Red Cell Distribution Width 14.7 % (12.1-15.2)
[2024-02-05 11:29] LABS: PTT, Activated Partial Thromb 33.4 SECONDS (24.3-36.9); Protime INR 1.07
[2024-02-05 11:36] LABS: Anion Gap 5.4 mEq/L (5.0-15.0); Potassium 4.4 mEq/L (3.5-5.1)
--- NOTE | 2024-02-06 13:38 | EKG ---
Test Date: 2024-02-05 Test Time: 12:06:23 Candy Feeder: MAGY MEASUREMENT RESULTS: Intervals: Rate: 70 OH: 234 QRSD: 80 QT: 414 QTc: 447 [place]: P: 64 OH: 234 QRS: 61 T: 77 INTERPRETIVE STATEMENTS: Sinus rhythm with 1st degree AV block Otherwise normal ECG No previous ECG available for comparison Electronically Signed On 02-06-24 13:35:59 NECKTIE STITCHER by Khris Perez
[2024-02-26] MEDS ORDERED: LIDOCAINE 1% MPF 5 ML VIAL ONE (07:39)
[2024-02-26] MEDS ORDERED: propofoL 200 MG/20 ML VIAL IV ONE (07:40)
[2024-02-26] MEDS: Ringers Lactate 1,000 ML IV ONE (08:00)
[2024-02-26] MEDS ORDERED: SIMETHICONE 40 MG/ 0.6 ML ONE (08:09)
[2024-02-26] MEDS ORDERED: GLYCOPYRROLATE 0.2 MG/ML SYR ONE (09:14)
[2024-02-27 02:46] VITALS: BP 154/58; TEMP 97.5; O2SAT 99
== END 2024-02-26 09:50 | disposition home or self-care (01) ==
LOC: OR 07:23
PROVIDERS: ATTEND Internal Medicine Gastroenterology
PROC: 0DBF8ZX Excision of Right Large Intestine, Via Natural or Artificial Opening Endoscopic, Diagnostic (ICD-10-PCS; 2024-02-26)
PROC: 0DBG8ZX Excision of Left Large Intestine, Via Natural or Artificial Opening Endoscopic, Diagnostic (ICD-10-PCS; 2024-02-26)
PROC: 0DBM8ZX Excision of Descending Colon, Via Natural or Artificial Opening Endoscopic, Diagnostic (ICD-10-PCS; principal; 2024-02-26 08:30)
DX: K52.9 Noninfective gastroenteritis and colitis, unspecified (principal); K57.30 Diverticulosis of large intestine without perforation or abscess without bleeding; K63.3 Ulcer of intestine; D64.9 Anemia, unspecified; K63.5 Polyp of colon
CPT/HCPCS: 93005; 85025; 80048; 36415; 85610; 88305; 85730; 45385; 45380; J2704; J2003; J7120